=== PATIENT | female | born 1940 | race Caucasian/White ===

== ENCOUNTER 2016-11-10 12:32 | Outpatient (CLI) | payer MEDICARE, OTHER | END 2016-11-10 12:33 | disposition home or self-care (01) | DX: I48.91 Unspecified atrial fibrillation (principal); Z79.01 Long term (current) use of anticoagulants ==

== ENCOUNTER 2016-12-22 13:38 | Outpatient (CLI) | payer MEDICARE, OTHER | END 2016-12-22 13:39 | disposition home or self-care (01) | DX: I48.91 Unspecified atrial fibrillation (principal); Z79.01 Long term (current) use of anticoagulants ==

== ENCOUNTER 2017-02-08 10:07 | Outpatient (CLI) | payer MEDICARE, OTHER | END 2017-02-08 10:08 | disposition home or self-care (01) | DX: Z78.0 Asymptomatic menopausal state (principal) ==

== ENCOUNTER 2017-04-06 07:05 | Outpatient (CLI) | payer MEDICARE, OTHER ==
[2017-04-06 12:15] LABS: BUN - BLOOD UREA NITROGEN 12 mg/dL (6-20); CALCIUM 9.3 mg/dL (8.5-10.3); CARBON DIOXIDE - CO2 27 mmol/L (21-32); CHLORIDE 93 mmol/L (101-111); CHOL/HDL RATIO 2.4 (<4.4); CHOLESTEROL 190 mg/dL; CREATININE 1.2 mg/dL (0.4-1.0); GFR - MDRD 44 (>89); GLUCOSE 117 mg/dL (70-100); HDL CHOLESTEROL 78 mg/dL; LDL/HDL RATIO 1.2 (<4.4); POTASSIUM 3.8 mmol/L (3.5-5.0); SODIUM 130 mmol/L (135-145); TRIGLYCERIDES 94 mg/dL; VLDL CHOLESTEROL 19 mg/dL
== END 2017-04-06 07:06 | disposition home or self-care (01) ==
LOC: LAB.F 07:05
PROVIDERS: ATTEND Internal Medicine
DX: I48.91 Unspecified atrial fibrillation (principal); N18.3 Chronic kidney disease, stage 3 (moderate); C50.919 Malignant neoplasm of unspecified site of unspecified female breast; Z13.6 Encounter for screening for cardiovascular disorders; I12.9 Hypertensive chronic kidney disease with stage 1 through stage 4 chronic kidney disease, or unspecified chronic kidney disease; Z79.01 Long term (current) use of anticoagulants
CPT/HCPCS: 36415; 80048; 80061; 82043; 82570; 85610

== ENCOUNTER 2017-04-14 10:09 | Outpatient (CLI) | payer MEDICARE, OTHER | END 2017-04-14 10:10 | disposition home or self-care (01) | LOC: DI.S 10:09 | PROVIDERS: ATTEND Internal Medicine | DX: Z53.9 Procedure and treatment not carried out, unspecified reason (principal) ==

== ENCOUNTER 2017-06-01 12:36 | Outpatient (CLI) | payer MEDICARE, OTHER | END 2017-06-01 12:37 | disposition home or self-care (01) | LOC: LAB.F 12:36 | PROVIDERS: ATTEND Internal Medicine | DX: I48.91 Unspecified atrial fibrillation (principal); Z79.01 Long term (current) use of anticoagulants | CPT/HCPCS: 85610 ==

== ENCOUNTER 2017-06-18 10:31 | Inpatient (IN) | payer MEDICARE, OTHER ==
--- NOTE | 2017-06-18 10:51 | ED Physician Documentation ---
PD HPI DYSPNEA - Stated complaint Stated Complaint: SOA - Chief complaint Chief Complaint: Resp - History obtained from History obtained from: Patient - History of Present Illness Timing - onset: How many days ago (5-6) Timing - onset during: Exertion, Other (lying down, fairly irregular times that it is bothering her.) Timing - duration: Days Timing - details: Gradual onset, Still present Inciting event(s): No: Out of meds, URI (has not had cough per se. Mild sputum production) Improved by: Rest, Sitting up Worsened by: Exertion, Laying flat, Coughing Associated symptoms: Cough (mild cough at times, not predominate per patient.), Wheezing, Palpitations (chronic atrial fib.). No: Fever, Hemoptysis, Chest pain / discomfort Similar symptoms before: Has not had sx before Recently seen: Not recently seen Review of Systems Constitutional: reports: Myalgias. denies: Fever, Chills Nose: denies: Rhinorrhea / runny nose, Congestion Throat: denies: Sore throat Cardiac: reports: Palpitations (chronic atrial fib.), Pedal edema (chronic). denies: Chest pain / pressure, Calf pain Respiratory: reports: Dyspnea, Cough (minimal for the past week), Wheezing GI: denies: Abdominal Pain, Nausea, Vomiting, Constipation, Diarrhea, Bloody / black stool : denies: Dysuria, Frequency Skin: denies: Rash, Lesions Musculoskeletal: denies: Extremity pain Neurologic: reports: Generalized weakness. denies: Focal weakness, Numbness, Difficulty speaking, Near syncope Endocrine: reports: Easy bruising / bleeding. 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, Other HEENT: Tonsil/Adenoidectomy - Present Medications Home Medications: Ambulatory Orders Medication Instructions Recorded Confirmed Metoprolol Tartrate 100 mg PO BID 06/12/14 06/18/17 Nitrofurantoin [Macrobid] 100 mg ORAL DAILY PRN 06/12/14 06/18/17 [id number] CD [Cardizem Cd] 180 mg PO DAILY 06/12/14 06/18/17 Anastrozole [Arimidex] 1 mg PO DAILY 10/01/16 06/18/17 Lisinopril [Lisinopril] 40 mg PO DAILY 06/18/17 06/18/17 Warfarin Sodium [Jantoven] 2.5 mg PO SUTUWETHSA@1400 06/18/17 06/18/17 Warfarin Sodium [Jantoven] 5 mg PO MOFR@1400 06/18/17 06/18/17 - Allergies Allergies/Adverse Reactions: Allergies Allergy/AdvReac Type Severity Reaction Status Date / Time Sulfa (Sulfonamide Allergy Rash Verified 06/18/17 10:39 Antibiotics) - Social History Does the pt smoke?: No Smoking Status: Never smoker Does the pt drink ETOH?: No Does the pt have substance abuse?: No - Family History Family history: reports: Non contributory - Immunizations Immunizations are current?: No Immunizations: TDAP >10years/unknown - POLST Patient has POLST: No PD ED PE NORMAL - Vitals Vital signs reviewed: Yes - General General: Alert and oriented X 3, Well developed/nourished - HEENT HEENT: Moist mucous membranes, Pharynx benign - Neck Neck: Supple, no meningeal sign, No adenopathy, No bruit, Other (mild JVD reclined to 45 degrees) - Cardiac Cardiac: No murmur. No: RRR (irregular but reasonable rate at 80-115) - Respiratory Respiratory: No respiratory distress, Other (crackles at bases, right more than left, and some central wheezing with breathing. ) - Abdomen Abdomen: Soft, Non tender, Non distended - Female Female : Deferred - Rectal Rectal: Deferred - Back Back: No CVA TTP - Derm Derm: Normal color, Warm and dry - Extremities Extremities: No tenderness to palpate, Normal ROM s pain, No calf tenderness / cord, Other (1+ edema in both lower legs. ) - Neuro Neuro: Alert and oriented X 3, No motor deficit, Normal speech - Psych Psych: Normal mood, Normal affect Results - Vitals Vitals: Vital Signs - 24 hr 06/18/17 06/18/17 06/18/17 10:36 12:24 12:46 Temperature 36.6 C Heart Rate 114 H 62 55 L Respiratory 20 21 20 Rate Blood Pressure 209/90 H 170/109 H O2 Saturation 92 95 Oxygen O2 Source Room air - Labs Labs: Laboratory Tests 06/18/17 06/18/17 06/18/17 11:30 11:30 11:30 WBC 9.4 RBC 3.51 L Hgb 12.1 Hct 35.4 L MCV 100.9 H MCH 34.6 H MCHC 34.3 RDW 13.4 Plt Count 214 MPV 7.6 L Neut # 7.0 H Lymph # 1.4 L [place] # 0.9 Eos # 0.0 Baso # 0.1 Absolute Nucleated RBC 0.00 Nucleated RBCs 0.0 PT 21.9 H INR 1.9 H Sodium 124 L Potassium 4.9 Chloride 89 L Carbon Dioxide 25 Anion Gap 10.0 BUN 19 Creatinine 1.2 H Estimated GFR (MDRD) 44 L Glucose 126 H Calcium 9.5 Magnesium 1.6 L Total Bilirubin 0.9 AST 22 ALT 14 Alkaline Phosphatase 78 Troponin I B-Natriuretic Peptide Total Protein 7.2 Albumin 3.8 Globulin 3.4 Albumin/Globulin Ratio 1.1 Lipase 45 06/18/17 06/18/17 11:30 11:30 WBC RBC Hgb Hct MCV MCH MCHC RDW Plt Count MPV Neut # Lymph # [place] # Eos # Baso # Absolute Nucleated RBC Nucleated RBCs PT INR Sodium Potassium Chloride Carbon Dioxide Anion Gap BUN Creatinine Estimated GFR (MDRD) Glucose Calcium Magnesium Total Bilirubin AST ALT Alkaline Phosphatase Troponin I < 0.04 B-Natriuretic Peptide 1294 H Total Protein Albumin Globulin Albumin/Globulin Ratio Lipase - Rads (name of study) chest Radiology: Prelim report reviewed, EMP read contemporaneously (infiltrate on right and some effusion on left, could be c/w pneumonia, CHF. ) PD MEDICAL DECISION MAKING - ED course Complexity details: reviewed results, re-evaluated patient (She has had increased coughing and now some sputum production (clear though) after neb treatment. says she has had cough this past week. Consider pneumonia vs. CHF, with interstitial infiltrate, effusion, pedal edema and elevated BNP. She is having lower sats to 92% RA and desats to 85% with simple coughing here. ), considered differential (likely new onset CHF, without notable symptoms to suggest pneumonia. ), d/w patient, d/w systems security consultant (Dr. Hubbard, Hospitalist) Departure - Departure Disposition: 66 [facility] DC/Xfer Clinical Impression: Hyponatremia Congestive heart failure Qualifiers: Congestive heart failure type: unspecified congestive heart failure type Congestive heart failure chronicity: acute Qualified Code(s): I50.9 - Heart failure, unspecified Dyspnea Qualifiers: Dyspnea type: orthopnea Qualified Code(s): R06.01 - Orthopnea Hypertension Qualifiers: Hypertension type: other secondary hypertension Qualified Code(s): I15.8 - Other secondary hypertension Atrial fibrillation Qualifiers: Atrial fibrillation type: chronic Qualified Code(s): I48.2 - Chronic atrial fibrillation Condition: Stable Record reviewed to determine appropriate education?: Yes
[2017-06-18 11:38] LABS: BASOPHILS # (AUTO) 0.1 10^3/uL (0.0-0.1); BASOPHILS % (AUTO) 0.9 %; EOSINOPHILS % (AUTO) 0.2 %; HCT - HEMATOCRIT 35.4 % (37.0-47.0); HGB - HEMOGLOBIN 12.1 g/dL (12.0-16.0); LYMPHOCYTES # (AUTO) 1.4 10^3/uL (1.5-3.5); LYMPHOCYTES % (AUTO) 14.9 %; MEAN CORPUSCULAR HEMOGLOBIN 34.6 pg (27.0-31.0); MEAN CORPUSCULAR HGB CONC 34.3 g/dL (32.0-36.0); MEAN CORPUSCULAR VOLUME 100.9 fL (81.0-99.0); MEAN PLATELET VOLUME 7.6 fL (7.9-10.8); MONOCYTES # (AUTO) 0.9 10^3/uL (0.0-1.0); MONOCYTES % (AUTO) 9.5 %; NEUTROPHILS % (AUTO) 74.5 %; RED BLOOD COUNT 3.51 10^6/uL (4.20-5.40); RED CELL DISTRIBUTION WIDTH 13.4 % (12.0-15.0); UNCORRECTED WHITE BLOOD COUNT 9.4 x10^3/uL; WHITE BLOOD COUNT 9.4 x10^3/uL (4.8-10.8)
[2017-06-18 11:45] LABS: INR 1.9 (0.8-1.2); PT - PROTHROMBIN TIME 21.9 secs (9.9-12.6)
[2017-06-18 11:50] LABS: BILIRUBIN,TOTAL 0.9 mg/dL (0.2-1.0); CALCIUM 9.5 mg/dL (8.5-10.3); CREATININE 1.2 mg/dL (0.4-1.0); MAGNESIUM 1.6 mg/dL (1.7-2.8); POTASSIUM 4.9 mmol/L (3.5-5.0); TOTAL PROTEIN 7.2 g/dL (6.7-8.2)
[2017-06-18 11:51] LABS: ALBUMIN/GLOBULIN RATIO 1.1 (1.0-2.2)
--- NOTE | 2017-06-18 11:59 | XRAY Preliminary Report ---
Exam: XR Chest 2 View PA/LAT IMPRESSION: 1. Infiltrates in the right middle lobe and the left base with additional small left effusion. [facility] SITE ID: [id number]
--- NOTE | 2017-06-18 12:02 | XRAY Report ---
EXAM: CHEST RADIOGRAPHY EXAM DATE: 06/18/2017 11:52 AM. CLINICAL HISTORY: Dyspnea for several days. COMPARISON: None. TECHNIQUE: 2 views. FINDINGS: Lungs/Pleura: Opacities are noted in the right middle lobe in addition to the left base suggestive of infiltrates. There is a small left pleural effusion. Mediastinum: Heart and mediastinal contours are unremarkable. Other: None. IMPRESSION: 1. Infiltrates in the right middle lobe and the left base with additional small left effusion. [facility] Referring Provider Line: [phone] SITE ID: [id number]
[2017-06-18] MEDS ORDERED: ALBUTEROL NEB 2.5 MG/3 ML INH STA (12:10)
[2017-06-18] MEDS ORDERED: ALBUTEROL NEB 2.5 MG/3 ML INH ONE (12:23)
[2017-06-18] MEDS ORDERED: FUROSEMIDE 20 MG/2 ML VIAL IVP STA (13:15)
[2017-06-18] MEDS ORDERED: ONDANSETRON 4 MG/2 ML VIAL IVP PRN (13:19)
[2017-06-18] MEDS ORDERED: HYDROcod/ACETAM 10 MG/325 MG TABLET PO PRN (13:19)
[2017-06-18] MEDS ORDERED: ACETAMINOPHEN 325 MG TABLET PO PRN (13:19)
[2017-06-18] MEDS ORDERED: PROCHLORPERAZINE 10 MG/2 ML VIAL IVP PRN (13:19)
[2017-06-18] MEDS ORDERED: HYDROcod/ACETAM 5/325 MG TABLET PO PRN (13:19)
[2017-06-18] MEDS ORDERED: FUROSEMIDE 20 MG/2 ML VIAL IVP ONE ×2 (13:38→14:45)
[2017-06-18] MEDS: LISINOPRIL 20 MG TABLET PO SCH (15:24)
--- NOTE | 2017-06-18 15:43 | HISTORY & PHYSICAL EXAMINATION ---
Chief Complaint - Chief Complaint Chief Complaint: shortness of air History of Present Illness - Admitted From Admitted From:: emergency department - History Obtained From Records Reviewed: yes History obtained from: patient and Exam Limitations: none - History of Present Illness HPI Comment/Other: Patient is a 77-year-old female with a past medical history significant for stage I breast cancer with HER2 overexpression status post lumpectomy and radiation currently getting chemotherapy with anastrozole since 09/2016, also with history of atrial fibrillation on Coumadin, hypertension and an ovarian tumor which has been removed who presents to the emergency department with a chief complaint of shortness of air. The patient states that her symptoms initially started on Tuesday she states that she noticed that it was harder for her to breathe when she exerted herself. She also noticed that she was tiring more easily. She states that she was having increased cough when lying flat and had difficulty breathing when she would lie flat. The patient states that she continued to have cough throughout the week with clear sputum production. She states that initially she felt as though her symptoms got better however this morning she states that her symptoms became acutely worse. She states that when she was getting up to walk she felt very short of air just with minimal exertion and finally decided she needed to come into the emergency department. The patient denies any fevers or chills. She denies any chest pain. She does admit to lower extremity swelling she states that she has had lower extremity swelling for a long time and has been working with her primary care physician to improve the swelling. The patient otherwise denies any changes in her appetite, recent unintentional weight loss, night sweats. She also denies any headaches, blurred vision, runny nose, sore throat, nasal congestion, abdominal pain, nausea, vomiting, diarrhea or constipation. She denies any joint pains muscle aches or focal neurologic deficits. On presentation to the emergency department the patient was afebrile she was quite hypertensive with blood pressure in the 200 systolic, she also appeared slightly tachypneic but was saturating at around 92% on room air. The patient underwent routine lab work which did reveal significant hyponatremia of 124 with an elevated BNP of 1294. The patient's troponin was negative and her magnesium was slightly decreased. The patient's EKG showed that she was in atrial fibrillation with anterior Q waves and T wave inversions. The patient's chest x-ray showed infiltrates in the right middle lobe and left base with additional small left pleural effusion. The patient was initially going to be placed in observation for what appeared to be a CHF exacerbation with possible pneumonia. However while in the emergency department the patient developed increasing hypoxia at rest with O2 saturation dropping to 85%. Also when the patient had to get up to use the commode she became very tachypneic with respiratory rate in the 30s and had respiratory distress. Therefore patient was admitted to the [facility] for CHF exacerbation and possible community acquired pneumonia. She is also going to be tested for pulmonary embolism but a CT angiogram. Review of Systems - Other Findings Other Findings: A comprehensive review of systems was performed the pertinent positives and negatives are stated above in the HPI and the remainder of the review of systems is negative. History - Past Medical History Cardiovascular: reports: Hypertension, Atrial fibrillation Respiratory: reports: Shortness of breath Neuro: reports: None Endocrine/Autoimmune: reports: None GI: reports: None : reports: Chronic bladder infection HEENT: reports: None Psych: reports: Anxiety Musculoskeletal: reports: None Derm: reports: None MRSA Hx?: No Other Past Medical History: 1. Stage I Breast cancer with HER2 hyperexpansion status post lumpectomy, radiation and currently on hormone therapy. 2. Atrial fibrillation on Coumadin. 3. Hypertension. 4. Ovarian tumor status post resection. 5. Appendectomy. 6. 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 Social History Notes: Patient was born and raised in the [facility]. 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 The family move to [place] and she spent 35 years in [place]. They then moved to [place] where they only live for 2 years before moving back to the [facility]. Her and her have now been living in [facility] for the last 10 years. The patient does not have any biological children. The patient was formerly a smoker she smoked less than a quarter pack a day for about 20 years she quit over 20 years ago. Her and her have been for 43 years. She does drink alcohol socially and denies any illicit drug use. - Substance History Use: Uses substance without health or social issues: NONE Abuse: Recurrent use of substance despite neg consequences: NONE Dependence: Experiences withdrawal or developed tolerances: NONE - POLST Patient has POLST: No POLST Status: Full Code Meds/Allgy - Home Medications Home Medications: Ambulatory Orders Medication Instructions Recorded Confirmed Metoprolol Tartrate 100 mg PO BID 06/12/14 06/18/17 Nitrofurantoin [Macrobid] 100 mg ORAL DAILY PRN 06/12/14 06/18/17 [id number] CD [Cardizem Cd] 180 mg PO DAILY 06/12/14 06/18/17 Anastrozole [Arimidex] 1 mg PO DAILY 10/01/16 06/18/17 Lisinopril [Lisinopril] 40 mg PO DAILY 06/18/17 06/18/17 Warfarin Sodium [Jantoven] 2.5 mg PO SUTUWETHSA@1400 06/18/17 06/18/17 Warfarin Sodium [Jantoven] 5 mg PO MOFR@1400 06/18/17 06/18/17 - Allergies Allergies/Adverse Reactions: Allergies Allergy/AdvReac Type Severity Reaction Status Date / Time Sulfa (Sulfonamide Allergy Rash Verified 06/18/17 10:39 Antibiotics) Exam - Vital Signs Reviewed Vital Signs: Yes Vital Signs: Vital Signs x48h Temp Pulse Pulse Resp BP BP Pulse Ox 06/18/17 14:59 36.5 C 62 181/78 H 96 06/18/17 14:45 36.9 C 65 18 215/86 H 92 06/18/17 14:03 61 24 211/76 H 91 L 06/18/17 13:21 61 20 160/118 H 95 - Physical Exam General Appearance: positive: Alert, Moderate distress (tachypnea, using accessory muscles of breathing) Eyes Bilateral: positive: Normal inspection, PERRL, EOMI, No lid inflammation, Conjunctivae nml, No scleral icterus ENT: positive: ENT inspection nml, Pharynx nml, No signs of dehydration. negative: Purulent nasal drainage, Pharyngeal erythema, Oral lesions Neck: positive: Nml inspection, Thyroid nml, Trachea midline, Other (elevated JVD). negative: Thyromegaly, Lymphadenopathy (R), Lymphadenopathy (L), Carotid bruit, Tracheal deviation Respiratory: positive: Chest non-tender, Wheezes (upper airway), Rales ( bibasilar), Rhonchi (right lung), Other (tachypneic with respiratory distress) Cardiovascular: positive: No murmur, No gallop, Irregularly irregular Abdomen: positive: Non-tender, No organomegaly, Nml bowel sounds, No distention. negative: Guarding, Rebound, Hepatomegaly Back: positive: Nml inspection. negative: CVA tenderness (R), CVA tenderness (L ) Skin: positive: Color nml, No rash, Warm. negative: Cyanosis, Pallor Extremities: positive: Non-tender, Full ROM, Nml appearance, Pedal edema (1+). negative: Joint swelling Neurologic/Psychiatric: positive: Oriented x3, CN's nml (2-12), Motor nml, Sensation nml, Mood/affect nml Conclusion/Plan - Problem List (1) Acute respiratory failure with hypoxia Conclusion/Plan: Patient presented with shortness of air and cough. Patient also admitted to having orthopnea and lower extremity swelling. Patient's BNP was elevated at about 1200. Patient was found to have crackles on examination along with upper airways wheezing. Initially on presentation the patient appeared to be stable but decompensated in the emergency department with respiratory distress and hypoxic respiratory failure. Patient's oxygen saturation dropped to 85% on room air she was placed on 3 L of oxygen with which oxygen saturation improved the patient was still quite tachypneic with exertion and using accessory muscles of breathing. Etiology of the patient's acute respiratory failure. Most likely to be secondary to congestive heart failure although the patient is not a history of systolic dysfunction she does have history of atrial fibrillation and was tachycardic on presentation although her heart rate remained stable after initial presentation. Patient is not have an echocardiogram in our system given her elevated BNP, orthopnea and crackles on examination with positive JVD I would suspect the patient likely has developed some systolic or diastolic dysfunction. Patient's chest x-ray didn't show infiltrates on the right side and small pleural effusion on the left infiltrates could also have been secondary to pulmonary vascular congestion and pulmonary edema however given her cough this is also a possible etiology of the patient's hypoxemia. Patient was hypertensive on presentation and blood pressure remained elevated during the time she was in the emergency department. Her blood pressure was as high as 200 systolic and 118 diastolic. The patient may have had flash pulmonary edema given that her symptoms and hypoxia did develop quite acutely. The patient has had breast cancer and did present with very acute symptoms there for pulmonary embolism is also on the differential. The patient will undergo a CT pulmonary angiogram. The patient's hypoxia could also be multifactorial. Patient is not have a history of COPD or asthma. Plan: Supplemental oxygen IV Lasix IV antibiotics with ceftriaxone azithromycin CT pulmonary angiogram Echocardiogram telemetry monitoring Rate control of atrial fibrillation (2) Acute exacerbation of CHF (congestive heart failure) Conclusion/Plan: Patient appears to have new-onset congestive heart failure Patient had elevated BNP of greater than 1200 with orthopnea and increased lower extremity swelling. She also had elevated JVD and crackles on examination with chest x-ray concerning for possible pulmonary edema. This could be secondary to uncontrolled atrial fibrillation with RVR however patient rate was controlled after initial elevation on presentation Patient likely has systolic or diastolic dysfunction but we do not have an echo Patient may have a pulmonary embolism that could cause right-sided heart failure. Patient does have Q waves in the anterior leads with T-wave inversions in may have some ischemic cardiomyopathy causing a reduced EF but we will not know this until we get an echocardiogram. Plan: Supplemental oxygen IV Lasix Echocardiogram Telemetry monitoring If patient does have a reduced EF she is already on optimal treatment with beta ashia and BRODIE inhibitor Qualifiers: Congestive heart failure type: unspecified congestive heart failure type Qualified Code(s): I50.9 - Heart failure, unspecified (3) CAP (community acquired pneumonia) Conclusion/Plan: Patient has been having cough and shortness of air for the last several days. Patient was hypoxic in the emergency department with respiratory distress, tachypnea and use of the sensory muscles of breathing Chest x-ray showed significant infiltrates in the right lung the patient did have rhonchi on examination. Plan: Treat for [facility] pneumonia with IV ceftriaxone azithromycin Supplemental oxygen Nebulizers as needed (4) Hypertension Conclusion/Plan: Patient's blood pressure was severely elevated on presentation with systolic blood pressure of 209 and continued to be elevated during her stay in the emergency department. The patient's acute decompensation and hypoxia it is possible that she developed flash pulmonary edema secondary to hypertensive emergency however patient did have multiple other reasons she may have developed hypoxia. Plan: Continue patient's home medications Monitor blood pressure closely Give IV antihypertensives if needed Give IV Lasix Qualifiers: Hypertension type: essential hypertension Qualified Code(s): I10 - Essential (primary) hypertension (5) Atrial fibrillation Conclusion/Plan: Patient history of atrial fibrillation on Coumadin. Chronic A. fib The patient's heart rate was elevated on presentation at 114. Patient's heart rate remained stable while she was down in the emergency department. Patient may have been having intermittent A. fib with RVR at home that could have led to pulmonary vascular congestion from forward failure. EKG shows atrial fibrillation Plan: Continue Coumadin Monitor INR Continue home dose of metoprolol Telemetry monitoring Titrate beta ashia as needed to maintain normal heart rate Qualifiers: Atrial fibrillation type: chronic Qualified Code(s): I48.2 - Chronic atrial fibrillation (6) Hyponatremia Conclusion/Plan: Patient has significant hyponatremia with sodium of 124. Patient appears to be euvolemic to hypervolemic on presentation Patient's hyponatremia is likely either secondary to SIADH from possible paraneoplastic syndrome and likely to be from stage I breast cancer makes me concerned for possibility of lung malignancy. Could also be secondary to pneumonia as that can cause hyponatremia and mild SIADH. Could also be secondary to hypervolemia from CHF exacerbation although the patient is not appeared to be overly edematous. Plan: IV Lasix Monitor sodium Consider fluid restriction and sodium is not improving Treat pneumonia CT pulmonary angiogram to look for possible malignancy (7) Hypomagnesemia Conclusion/Plan: Patient presented with hypomagnesemia with a magnesium of 1.6. Replace magnesium with IV magnesium sulfate Monitor magnesium - Lab Results Lab results reviewed: Yes Fish Bones: 06/18/17 11:30 06/18/17 11:30 Other Lab Results: Laboratory Results WBC 9.4 x10^3/uL (4.8-10.8) 06/18/17 11:30 RBC 3.51 10^6/uL (4.20-5.40) L 06/18/17 11:30 Hgb 12.1 g/dL (12.0-16.0) 06/18/17 11:30 Hct 35.4 % (37.0-47.0) L 06/18/17 11:30 MCV 100.9 fL (81.0-99.0) H 06/18/17 11:30 MCH 34.6 pg (27.0-31.0) H 06/18/17 11:30 MCHC 34.3 g/dL (32.0-36.0) 06/18/17 11:30 RDW 13.4 % (12.0-15.0) 06/18/17 11:30 Plt Count 214 10^3/uL (130-450) 06/18/17 11:30 MPV 7.6 fL (7.9-10.8) L 06/18/17 11:30 Neut # 7.0 10^3/uL (1.5-6.6) H 06/18/17 11:30 Lymph # 1.4 10^3/uL (1.5-3.5) L 06/18/17 11:30 [place] # 0.9 10^3/uL (0.0-1.0) 06/18/17 11:30 Eos # 0.0 10^3/uL (0.0-0.7) 06/18/17 11:30 Baso # 0.1 10^3/uL (0.0-0.1) 06/18/17 11:30 Absolute Nucleated RBC 0.00 x10^3/uL 06/18/17 11:30 Nucleated RBCs 0.0 /100WBC 06/18/17 11:30 PT 21.9 secs (9.9-12.6) H 06/18/17 11:30 INR 1.9 (0.8-1.2) H 06/18/17 11:30 Sodium 124 mmol/L (135-145) L 06/18/17 11:30 Potassium 4.9 mmol/L (3.5-5.0) 06/18/17 11:30 Chloride 89 mmol/L (101-111) L 06/18/17 11:30 Carbon Dioxide 25 mmol/L (21-32) 06/18/17 11:30 Anion Gap 10.0 (6-13) 06/18/17 11:30 BUN 19 mg/dL (6-20) 06/18/17 11:30 Creatinine 1.2 mg/dL (0.4-1.0) H 06/18/17 11:30 Estimated GFR (MDRD) 44 (>89) L 06/18/17 11:30 Glucose 126 mg/dL (70-100) H 06/18/17 11:30 Calcium 9.5 mg/dL (8.5-10.3) 06/18/17 11:30 Magnesium 1.6 mg/dL (1.7-2.8) L 06/18/17 11:30 Total Bilirubin 0.9 mg/dL (0.2-1.0) 06/18/17 11:30 AST 22 IU/L (10-42) 06/18/17 11:30 ALT 14 IU/L (10-60) 06/18/17 11:30 Alkaline Phosphatase 78 IU/L (42-121) 06/18/17 11:30 Troponin I < 0.04 ng/mL (<0.49) 06/18/17 11:30 B-Natriuretic Peptide 1294 pg/mL (5-100) H 06/18/17 11:30 Total Protein 7.2 g/dL (6.7-8.2) 06/18/17 11:30 Albumin 3.8 g/dL (3.2-5.5) 06/18/17 11:30 Globulin 3.4 g/dL (2.1-4.2) 06/18/17 11:30 Albumin/Globulin Ratio 1.1 (1.0-2.2) 06/18/17 11:30 Lipase 45 U/L (22-51) 06/18/17 11:30 - Diagnostic Imaging Results Diagnostic Imaging Results: positive: Final report reviewed Diagnostic Imaging Results Comments: Chest x-ray impression: 1. Infiltrates in the right middle lobe and left base with additional small left effusion - EKG Results EKG Interpreted Independently: Yes EKG Findings: Atrial fibrillation with anterior Q waves and T wave inversions Issues/Core Measures - Anticipated LOS Anticipated Stay Length: 2 or more midnights - DVT/VTE - Prophylaxis VTE/DVT Prophylaxis med ordered at admit?: Yes
[2017-06-18] MEDS ORDERED: WARFARIN 5 MG TABLET PO SCH (16:00)
[2017-06-18] MEDS ORDERED: IOPAMIDOL-300 100 ML VIAL IVP ONE (16:03)
[2017-06-18] MEDS: cefTRIAXone 2 GM in SODIUM CHLORIDE 0.9% MINIBAG 100 ML IV SCH (16:14)
--- NOTE | 2017-06-18 16:27 | CT Report ---
EXAM: CT ANGIOGRAM CHEST EXAM DATE: 06/18/2017 04:04 PM. CLINICAL HISTORY: Hypoxia, shortness of breath and history of breast cancer. COMPARISON: None. TECHNIQUE: Routine helical imaging was performed through the chest in the pulmonary arterial phase. I V Contrast: 100 cc Isovue-300. Reconstructions: Coronal 3-D MIP reconstructions.Sagittal and coronal. In accordance with CT protocol optimization, one or more of the following dose reduction techniques w ere utilized for this exam: automated exposure control, adjustment of mA and/or KV based on patient s ize, or use of iterative reconstructive technique. FINDINGS: Pulmonary Arteries: Diagnostic quality: Adequate through the segmental arteries. No evidence for acute or chronic pulmona ry emboli. Lungs/Pleura: Small bilateral pleural effusions with dependent atelectasis in the bilateral lower lob es. Vascular distention with interlobular septal thickening bilaterally. Some subpleural as well as l inear, well marginated airspace disease within the anterior aspect of the right upper lobe. Separate areas of groundglass attenuation within the right lung. Mediastinum: Hypodense left lobe thyroid nodule measuring 7 mm. No enlarged mediastinal lymph nodes. Cardiomegaly with four-chamber dilatation, especially notable at the left ventricle and left atrium. Thoracic Aorta: Moderate atherosclerotic calcifications and coronary atherosclerosis. Normal caliber of the thoracic aorta. Upper Abdomen: 12 mm cyst within the right lobe of the liver. Other: Likely small clips within the right breast, partially imaged. IMPRESSION: 1. No evidence of pulmonary embolus. 2. Interlobular septal thickening with small bilateral pleural effusions consistent with pulmonary ed shayla. 3. Cardiomegaly with notable dilatation of the left atrium and left ventricle consistent with left ve ntricular failure and pulmonary edema. 4. Well demarcated linear/bandlike opacity in the subpleural region of the right upper lobe. Appearan ce suggests radiation fibrosis. Clinical correlation for history of radiation to the right breast. 5. Nonspecific groundglass opacities within the right lung. Suspect this represents some edema or sub segmental atelectasis although the differential diagnosis would include infection. [facility] Referring Provider Line: [phone] SITE ID: [id number]
[2017-06-18] MEDS: IPRATROPIUM/ALBUTEROL 3 ML NEB INH PRN (16:35)
[2017-06-18] MEDS ORDERED: MAGNESIUM SULFATE 2 GRAM 50 ML IV ONE (17:00)
[2017-06-18] MEDS ORDERED: FUROSEMIDE 40 MG/4 ML VIAL IVP ONE (17:00)
[2017-06-18] MEDS ORDERED: MORPHINE 2 MG/ML CARPUJECT IVP ONE (17:00)
[2017-06-18] MEDS: AZITHROMYCIN INJ 500 MG in SODIUM CHLORIDE 0.9% 250 ML IV SCH (17:16)
[2017-06-18] MEDS: WARFARIN 2.5 MG TABLET PO SCH (18:19)
[2017-06-18] MEDS ORDERED: METOPROLOL TARTRATE 50 MG TABLET PO SCH (21:00)
[2017-06-18] MEDS: SODIUM CHLORIDE FLUSH 0.9% 10 ML SYRINGE IVP SCH (23:04)
[2017-06-19] MEDS: ZOLPIDEM 5 MG TABLET PO PRN ×2 (01:12→21:33)
[2017-06-19] MEDS: IPRATROPIUM/ALBUTEROL 3 ML NEB INH PRN (01:20)
[2017-06-19] MEDS: SODIUM CHLORIDE FLUSH 0.9% 10 ML SYRINGE IVP SCH ×3 (06:39→21:41)
[2017-06-19] MEDS: SODIUM CHLORIDE FLUSH 0.9% 10 ML SYRINGE IVP PRN ×2 (06:39→08:34)
[2017-06-19] MEDS: FUROSEMIDE 40 MG/4 ML VIAL IVP SCH ×2 (06:39→14:00)
[2017-06-19] MEDS: PANTOPRAZOLE 40 MG TABLET PO SCH (06:40)
[2017-06-19 06:41] LABS: BASOPHILS # (AUTO) 0.1 10^3/uL (0.0-0.1); BASOPHILS % (AUTO) 0.5 %; HCT - HEMATOCRIT 36.5 % (37.0-47.0); HGB - HEMOGLOBIN 12.4 g/dL (12.0-16.0); LYMPHOCYTES % (AUTO) 9.3 %; MEAN CORPUSCULAR HEMOGLOBIN 34.5 pg (27.0-31.0); MEAN CORPUSCULAR HGB CONC 33.9 g/dL (32.0-36.0); MEAN CORPUSCULAR VOLUME 101.8 fL (81.0-99.0); MEAN PLATELET VOLUME 8.2 fL (7.9-10.8); MONOCYTES # (AUTO) 0.9 10^3/uL (0.0-1.0); MONOCYTES % (AUTO) 7.9 %; NEUTROPHILS # (AUTO) 9.3 10^3/uL (1.5-6.6); NEUTROPHILS % (AUTO) 82.3 %; NUCLEATED RED BLOOD CELLS AUTO 0.1 /100WBC; RED BLOOD COUNT 3.59 10^6/uL (4.20-5.40); RED CELL DISTRIBUTION WIDTH 13.7 % (12.0-15.0); UNCORRECTED WHITE BLOOD COUNT 11.3 x10^3/uL; WHITE BLOOD COUNT 11.3 x10^3/uL (4.8-10.8)
[2017-06-19 06:50] LABS: INR 1.9 (0.8-1.2); PT - PROTHROMBIN TIME 21.5 secs (9.9-12.6)
[2017-06-19 06:59] LABS: ALBUMIN/GLOBULIN RATIO 1.1 (1.0-2.2); CALCIUM 9.1 mg/dL (8.5-10.3); CREATININE 1.3 mg/dL (0.4-1.0); MAGNESIUM 1.9 mg/dL (1.7-2.8); PHOSPHORUS 4.3 mg/dL (2.5-4.6); POTASSIUM 3.9 mmol/L (3.5-5.0); TOTAL PROTEIN 6.2 g/dL (6.7-8.2)
[2017-06-19 07:32] LABS: HEMOGLOBIN A1C 0.49 g/dL
[2017-06-19] MEDS: cefTRIAXone 2 GM in SODIUM CHLORIDE 0.9% MINIBAG 100 ML IV SCH (08:31)
[2017-06-19] MEDS: diltiaZEM CD 180 MG CAPSULE PO SCH (08:31)
[2017-06-19] MEDS ORDERED: ENOXAPARIN 40 MG/0.4 ML SYRINGE SUBQ SCH (09:00)
[2017-06-19] MEDS ORDERED: FUROSEMIDE 20 MG/2 ML VIAL IVP ONE (09:00)
[2017-06-19] MEDS: POLYETHYLENE GLYCOL 3350 17 GM PACKET PO SCH (09:24)
[2017-06-19] MEDS: METOPROLOL TARTRATE 50 MG TABLET PO SCH ×3 (09:24→20:45)
[2017-06-19] MEDS: AZITHROMYCIN INJ 500 MG in SODIUM CHLORIDE 0.9% 250 ML IV SCH (09:41)
[2017-06-19] MEDS: LISINOPRIL 20 MG TABLET PO SCH (09:41)
[2017-06-19] MEDS: ANASTROZOLE 1 MG TABLET PO SCH (09:41)
[2017-06-19] MEDS ORDERED: ALPRAZolam 0.25 MG TABLET PO ONE (12:30)
--- NOTE | 2017-06-19 12:48 | PROVIDER PROGRESS NOTE ---
Assessment/Plan - Problem List (1) Acute respiratory failure with hypoxia Assessment/Plan: Patient presented with shortness of air and cough. Patient also admitted to having orthopnea and lower extremity swelling. Patient's BNP was elevated at about 1200. Patient was found to have crackles on examination Chest CT showed pulmonary edema with possible heart failure and concern for infection With exertion patient became hypoxic down to the 80s requiring NRB mask yesterday to get sats up to 90s She was given IV lasix with which her sats did improve and she was able to be weaned off O2 Patients BP was also uncontrolled on presentation Plan: Supplemental oxygen IV Lasix 40 mg BID IV antibiotics with ceftriaxone and azithromycin Echocardiogram shows moderate to severe mitral regurgitation and tricuspid regurgitation with preserved EF Telemetry monitoring Rate control of atrial fibrillation BP control (2) Acute exacerbation of CHF (congestive heart failure) Conclusion/Plan: Patient presented with dyspnea for 1 weeks with exertion and at rest and went into respiratory failure with hypoxia on presentation requiring a NRB but has been improving with IV lasix Echo shows moderate to severe mitral and trcuspid regurgitation with preserved EF She continues to have pulmonary edema as evident on CT and on exam with LE swelling BNP this morning is 3938 with is up from 1294 Patients CHF is likely multifactorial secondary to valvular heart disease, A fib and uncontrolled hypertension Plan: Supplemental oxygen IV Lasix 40 mg IV BID with PO potassium supplement 1800 ml fluid restriction Telemetry monitoring Daily weights and strict I/Os Wean down O2 Qualifiers: Congestive heart failure type: unspecified congestive heart failure type Qualified Code(s): I50.9 - Heart failure, unspecified (3) CAP (community acquired pneumonia) Conclusion/Plan: Patient has been having cough and shortness of air for the last several days. Patient was hypoxic in the emergency department with respiratory distress, tachypnea and use of the sensory muscles of breathing Chest x-ray showed significant infiltrates in the right lung the patient did have rhonchi on examination. Plan: Treat for Community acquired pneumonia with IV ceftriaxone azithromycin day 2 Supplemental oxygen Nebulizers as needed (4) Hypertension Conclusion/Plan: Patient's blood pressure was severely elevated on presentation with systolic blood pressure of 209 and continued to be elevated during her stay in the emergency department. The patient's acute decompensation and hypoxia it is possible that she developed flash pulmonary edema secondary to hypertension Plan: Continue patient's home medications Monitor blood pressure closely Give IV antihypertensives if needed Give IV Lasix BP elevated but better controlled today will continue to titrate meds Monitor Qualifiers: Hypertension type: essential hypertension Qualified Code(s): I10 - Essential (primary) hypertension (5) Atrial fibrillation Conclusion/Plan: Patient history of atrial fibrillation on Coumadin. Chronic A. fib The patient's heart rate was elevated on presentation at 114. EKG shows atrial fibrillation Plan: Continue Coumadin INR is 1.9 monitor daily Continue home dose of metoprolol Telemetry monitoring Titrate beta ashia as needed to maintain normal heart rate HR is stable Qualifiers: Atrial fibrillation type: chronic Qualified Code(s): I48.2 - Chronic atrial fibrillation (6) Hyponatremia Conclusion/Plan: Likely hypervolemic hyponatremia secondary to CHF exacerbation Na improved with diuresis increased to 128 from 124 today Plan: IV Lasix Monitor sodium Fluid restriction Treat pneumonia (7) Anxiety Conclusion/Plan: Patient has history of anxiety and feels very anxious with all that is going on and is requesting something for her anxiety Will give her low dose of xanax and monitor (8) Hypomagnesemia Conclusion/Plan: Resolved - Current Meds Current Meds: Current Medications Generic Name Dose Route Start Last Admin Trade Name Freq PRN Reason Stop Dose Admin Albuterol/Ipratropium 3 ml 06/18/17 16:15 06/19/17 01:20 Duoneb INH 3 ml Q4HR PRN Administration Wheezing Anastrozole 1 mg 06/19/17 09:00 06/19/17 09:41 Anastrozole PO 1 mg DAILY LAKISHA Administration Diltiazem HCl 180 mg 06/19/17 09:00 06/19/17 08:31 Cardizem Cd PO 180 mg DAILY LAKISHA Administration Furosemide 40 mg 06/19/17 06:00 06/19/17 06:39 Lasix Inj 40 Mg Vial IVP 40 mg BIDDIURETIC LAKISHA Administration Azithromycin 500 mg/ Sodium 250 mls @ 250 mls/hr 06/18/17 17:00 06/19/17 09:41 Chloride IV 250 mls/hr DAILY@1000 LAKISHA Administration Ceftriaxone Sodium 2 gm/ 100 mls @ 200 mls/hr 06/18/17 16:00 06/19/17 08:31 Sodium Chloride IV 200 mls/hr DAILY LAKISHA Administration Lisinopril 40 mg 06/18/17 16:00 06/19/17 09:41 Zestril PO 40 mg DAILY LAKISHA Administration Metoprolol Tartrate 50 mg 06/18/17 21:44 06/19/17 09:24 Lopressor PO Not Given BID LAKISHA Pantoprazole Sodium 40 mg 06/19/17 07:00 06/19/17 06:40 Protonix PO Not Given QDAC LAKISHA Polyethylene Glycol 17 gm 06/19/17 09:00 06/19/17 09:24 Miralax PO Not Given DAILY LAKISHA Sodium Chloride 10 ml 06/18/17 13:19 06/19/17 08:34 Normal Saline Flush 0.9% IVP 10 ml PRN PRN Administration NEEDED PER PROVIDER ORDERS Sodium Chloride 10 ml 06/18/17 22:00 06/19/17 06:39 Normal Saline Flush 0.9% IVP 10 ml Q8HR LAKISHA Administration Warfarin Sodium 2.5 mg 06/18/17 18:00 06/18/17 18:19 Coumadin PO 2.5 mg [id number] LAKISHA Administration Zolpidem Tartrate 5 mg 06/18/17 13:19 06/19/17 01:12 Ambien PO 5 mg QPM PRN Administration Insomnia - Lab Result Lab results reviewed: Yes Fish Bone Diagrams: 06/19/17 05:40 06/19/17 05:40 - EKG Results EKG Interpreted Independently: Yes - Diagnostic Imaging Results Diagnostic Imaging Results: Prelim report reviewed, Final report reviewed - Additional Planning Condition/Complexity: Guarded My Orders: My Active Orders 06/18/17 16:00 cefTRIAXone [Rocephin] 2 gm Sodium Chloride 0.9% Minibag [Normal Saline 0.9% Minibag] 100 ml IV DAILY 06/18/17 16:15 Nebulizer/MDI Tx. [RC] .q4prn Ipratropium/Albuterol [Duoneb] 3 ml INH Q4HR PRN 06/18/17 17:00 Azithromycin Inj [Zithromax Inj] 500 mg Sodium Chloride 0.9% [Normal Saline 0.9%] 250 ml IV DAILY@1000 06/18/17 17:27 Fluid Restriction [RC] ONCE 06/18/17 17:28 Daily Weight [RC] 0600 Message to Nursing [RC] QSHIFT 06/19/17 06:00 FUROSEMIDE INJ 40mg VIAL [LASIX INJ 40 mg VIAL] 40 mg IVP BIDDIURETIC 08/13/17 12:25 Telemetry- [RC] Q4HR Plan Discussed with:: Patient, Family Time Spent: 31-60 minutes Subjective - Subjective Patient Reports: Shortness of Breath (Patient states that shortness of breath is better this morning but she did have another episode last night where she started to have wheezing and needed more O2.), Other (No fevers, chills or chest pain.) Nursing Reports: No Complaints Objective Vital Signs: Vital Signs - 24 hr 06/18/17 06/18/17 06/18/17 14:45 14:59 16:36 Temperature 36.9 C 36.5 C Heart Rate 68 Heart Rate [ 65 62 Brachial] Respiratory 18 22 Rate Blood Pressure 215/86 H 181/78 H [Right Brachial artery] O2 Saturation 92 96 06/18/17 06/18/17 06/19/17 19:39 22:00 01:21 Temperature 36.8 C Heart Rate 55 L Heart Rate [ 52 L 50 L Brachial] Respiratory 18 20 Rate Blood Pressure 138/64 H 156/68 H [Right Brachial artery] O2 Saturation 94 96 06/19/17 06/19/17 06/19/17 02:19 06:30 08:06 Temperature 36.6 C 36.8 C Heart Rate Heart Rate [ 50 L 55 L 65 Brachial] Respiratory 17 17 Rate Blood Pressure 151/58 H 155/65 H 171/74 H [Right Brachial artery] O2 Saturation 99 97 06/19/17 11:47 Temperature 36.8 C Heart Rate Heart Rate [ 71 Brachial] Respiratory 20 Rate Blood Pressure 167/70 H [Right Brachial artery] O2 Saturation 93 Oxygen O2 Source Nasal cannula I&O (Last 24 Hrs): Intake and Output Totals x24h 06/17/17 06/18/17 06/19/17 23:59 23:59 23:59 Intake Total 315 Output Total 700 300 Balance -700 15 General: Alert, Oriented x3, Cooperative, Other (Anxious, breathing is more comfortable than yesterday) HEENT: Atraumatic, PERRLA, EOMI, Mucous membr. moist/pink Neck: Supple, No thyromegaly, +2 carotid pulse wo bruit, No LAD, Other (Mild JVD ) Lymphatic: no adenopathy Neuro: Alert, Non Focal, CN 2-12 Grossly Intact, Oriented Times 3 Cardiovascular: Other (Irregular, systolic murmur) Respiratory: Chest non-tender, Rales (Bilateral crackles), Rhonchi (Mild) Abdomen: Normal bowel sounds, Soft, No tenderness, No hepatospenomegaly Extremities: No clubbing, No cyanosis, Normal pulses, Other (Bilateral LE edema 1+) Skin: No rashes, No breakdown - Results Results: Laboratory Results WBC 11.3 x10^3/uL (4.8-10.8) H 06/19/17 05:40 RBC 3.59 10^6/uL (4.20-5.40) L 06/19/17 05:40 Hgb 12.4 g/dL (12.0-16.0) 06/19/17 05:40 Hct 36.5 % (37.0-47.0) L 06/19/17 05:40 MCV 101.8 fL (81.0-99.0) H 06/19/17 05:40 MCH 34.5 pg (27.0-31.0) H 06/19/17 05:40 MCHC 33.9 g/dL (32.0-36.0) 06/19/17 05:40 RDW 13.7 % (12.0-15.0) 06/19/17 05:40 Plt Count 202 10^3/uL (130-450) 06/19/17 05:40 MPV 8.2 fL (7.9-10.8) 06/19/17 05:40 Neut # 9.3 10^3/uL (1.5-6.6) H 06/19/17 05:40 Lymph # 1.0 10^3/uL (1.5-3.5) L 06/19/17 05:40 Converse # 0.9 10^3/uL (0.0-1.0) 06/19/17 05:40 Eos # 0.0 10^3/uL (0.0-0.7) 06/19/17 05:40 Baso # 0.1 10^3/uL (0.0-0.1) 06/19/17 05:40 Absolute Nucleated RBC 0.01 x10^3/uL 06/19/17 05:40 Nucleated RBCs 0.1 /100WBC 06/19/17 05:40 PT 21.5 secs (9.9-12.6) H 06/19/17 05:40 INR 1.9 (0.8-1.2) H 06/19/17 05:40 Sodium 128 mmol/L (135-145) L 06/19/17 05:40 Potassium 3.9 mmol/L (3.5-5.0) 06/19/17 05:40 Chloride 91 mmol/L (101-111) L 06/19/17 05:40 Carbon Dioxide 28 mmol/L (21-32) 06/19/17 05:40 Anion Gap 9.0 (6-13) 06/19/17 05:40 BUN 20 mg/dL (6-20) 06/19/17 05:40 Creatinine 1.3 mg/dL (0.4-1.0) H 06/19/17 05:40 Estimated GFR (MDRD) 40 (>89) L 06/19/17 05:40 Glucose 115 mg/dL (70-100) H 06/19/17 05:40 Glycated Hemoglobin 5.5 % (4.6-6.2) 06/19/17 05:40 Estim Average Glucose 111 (70-100) H 06/19/17 05:40 Calcium 9.1 mg/dL (8.5-10.3) 06/19/17 05:40 Phosphorus 4.3 mg/dL (2.5-4.6) 06/19/17 05:40 Magnesium 1.9 mg/dL (1.7-2.8) 06/19/17 05:40 Total Bilirubin 1.0 mg/dL (0.2-1.0) 06/19/17 05:40 AST 19 IU/L (10-42) 06/19/17 05:40 ALT 11 IU/L (10-60) 06/19/17 05:40 Alkaline Phosphatase 70 IU/L (42-121) 06/19/17 05:40 Troponin I < 0.04 ng/mL (<0.49) 06/18/17 11:30 B-Natriuretic Peptide 3938 pg/mL (5-100) H 06/19/17 05:40 Total Protein 6.2 g/dL (6.7-8.2) L 06/19/17 05:40 Albumin 3.2 g/dL (3.2-5.5) 06/19/17 05:40 Globulin 3.0 g/dL (2.1-4.2) 06/19/17 05:40 Albumin/Globulin Ratio 1.1 (1.0-2.2) 06/19/17 05:40 Lipase 45 U/L (22-51) 06/18/17 11:30 - Procedures Procedures: Procedures [employer] [employer] NEC (06/13/14)
[2017-06-19] MEDS: POTASSIUM CHLORIDE 20 MEQ TABLET PO SCH (14:00)
[2017-06-19] MEDS: WARFARIN 2.5 MG TABLET PO SCH (18:00)
[2017-06-19] MEDS ORDERED: ALPRAZolam 0.25 MG TABLET PO PRN (20:49)
[2017-06-20 05:31] LABS: BASOPHILS # (AUTO) 0.1 10^3/uL (0.0-0.1); BASOPHILS % (AUTO) 0.7 %; EOSINOPHILS % (AUTO) 0.4 %; HCT - HEMATOCRIT 34.7 % (37.0-47.0); LYMPHOCYTES # (AUTO) 1.2 10^3/uL (1.5-3.5); LYMPHOCYTES % (AUTO) 13.5 %; MEAN CORPUSCULAR HEMOGLOBIN 34.9 pg (27.0-31.0); MEAN CORPUSCULAR HGB CONC 34.4 g/dL (32.0-36.0); MEAN CORPUSCULAR VOLUME 101.4 fL (81.0-99.0); MEAN PLATELET VOLUME 7.4 fL (7.9-10.8); MONOCYTES # (AUTO) 1.2 10^3/uL (0.0-1.0); MONOCYTES % (AUTO) 12.6 %; NEUTROPHILS # (AUTO) 6.7 10^3/uL (1.5-6.6); NEUTROPHILS % (AUTO) 72.8 %; RED BLOOD COUNT 3.42 10^6/uL (4.20-5.40); RED CELL DISTRIBUTION WIDTH 13.6 % (12.0-15.0); UNCORRECTED WHITE BLOOD COUNT 9.2 x10^3/uL; WHITE BLOOD COUNT 9.2 x10^3/uL (4.8-10.8)
[2017-06-20 05:40] LABS: INR 2.2 (0.8-1.2); PT - PROTHROMBIN TIME 25.1 secs (9.9-12.6)
[2017-06-20 05:49] LABS: ALBUMIN/GLOBULIN RATIO 1.1 (1.0-2.2); BILIRUBIN,TOTAL 0.8 mg/dL (0.2-1.0); CALCIUM 8.7 mg/dL (8.5-10.3); CREATININE 1.5 mg/dL (0.4-1.0); MAGNESIUM 1.7 mg/dL (1.7-2.8); PHOSPHORUS 3.4 mg/dL (2.5-4.6); POTASSIUM 3.8 mmol/L (3.5-5.0); TOTAL PROTEIN 5.9 g/dL (6.7-8.2)
[2017-06-20] MEDS ORDERED: PHENAZOPYRIDINE 100 MG TABLET PO SCH (06:00)
[2017-06-20] MEDS: FUROSEMIDE 40 MG/4 ML VIAL IVP SCH ×2 (06:17→14:08)
[2017-06-20] MEDS: PANTOPRAZOLE 40 MG TABLET PO SCH (06:18)
[2017-06-20] MEDS: SODIUM CHLORIDE FLUSH 0.9% 10 ML SYRINGE IVP SCH ×3 (06:18→20:25)
[2017-06-20] MEDS: diltiaZEM CD 180 MG CAPSULE PO SCH (08:57)
[2017-06-20] MEDS: POTASSIUM CHLORIDE 20 MEQ TABLET PO SCH (08:57)
[2017-06-20] MEDS: LISINOPRIL 20 MG TABLET PO SCH (08:57)
[2017-06-20] MEDS: cefTRIAXone 2 GM in SODIUM CHLORIDE 0.9% MINIBAG 100 ML IV SCH (08:58)
[2017-06-20] MEDS: POLYETHYLENE GLYCOL 3350 17 GM PACKET PO SCH (08:58)
[2017-06-20] MEDS: ANASTROZOLE 1 MG TABLET PO SCH (08:58)
[2017-06-20] MEDS: METOPROLOL TARTRATE 50 MG TABLET PO SCH ×2 (09:06→20:26)
[2017-06-20] MEDS: AZITHROMYCIN INJ 500 MG in SODIUM CHLORIDE 0.9% 250 ML IV SCH (10:29)
--- NOTE | 2017-06-20 17:48 | PROVIDER PROGRESS NOTE ---
Assessment/Plan - Problem List (1) Acute respiratory failure with hypoxia Assessment/Plan: Patient presented with shortness of air and cough. Patient also admitted to having orthopnea and lower extremity swelling. Patient's BNP was elevated at about 1200. Patient was found to have crackles on examination Chest CT showed pulmonary edema with possible heart failure and concern for infection With exertion patient became hypoxic down to the 80s requiring NRB mask to get sats up to 90s She was given IV lasix with which her sats did improve and she was able to be weaned off O2 Patients BP was also uncontrolled on presentation Plan: Supplemental oxygen Continue IV Lasix 40 mg BID Continue IV antibiotics with ceftriaxone and azithromycin day 3 Echocardiogram shows moderate to severe mitral regurgitation and tricuspid regurgitation with preserved EF Telemetry monitoring Rate control of atrial fibrillation BP control Resolving down to 2L of O2 (2) Acute exacerbation of CHF (congestive heart failure) Conclusion/Plan: Patient presented with dyspnea for 1 weeks with exertion and at rest and went into respiratory failure with hypoxia on presentation requiring a NRB but has been improving with IV lasix Echo shows moderate to severe mitral and trcuspid regurgitation with preserved EF She continues to have pulmonary edema as evident on CT and on exam with LE swelling BNP this morning is 2620 down from 3938 Patients CHF is likely multifactorial secondary to valvular heart disease, A fib and uncontrolled hypertension Plan: Supplemental oxygen down to 2L today IV Lasix 40 mg IV BID with PO potassium supplement 1800 ml fluid restriction Telemetry monitoring Daily weights and strict I/Os Wean down O2 Negative 700 mL yesterday but increased 1lbs Continue to monitor Improving slowly Qualifiers: Congestive heart failure type: unspecified congestive heart failure type Qualified Code(s): I50.9 - Heart failure, unspecified (3) CAP (community acquired pneumonia) Conclusion/Plan: Patient has been having cough and shortness of air for the last several days. Patient was hypoxic in the emergency department with respiratory distress, tachypnea and use of the sensory muscles of breathing Chest x-ray showed significant infiltrates in the right lung the patient did have rhonchi on examination. Plan: Treat for Community acquired pneumonia with IV ceftriaxone azithromycin day 3 Supplemental oxygen Nebulizers as needed Improving (4) Hypertension Conclusion/Plan: Patient's blood pressure was severely elevated on presentation with systolic blood pressure of 209 and continued to be elevated during her stay in the emergency department. The patient's acute decompensation and hypoxia it is possible that she developed flash pulmonary edema secondary to hypertension Plan: Continue patient's home medications Monitor blood pressure closely Give IV antihypertensives if needed Give IV Lasix BP elevated but better controlled today will continue to titrate meds Monitor Qualifiers: Hypertension type: essential hypertension Qualified Code(s): I10 - Essential (primary) hypertension (5) Atrial fibrillation Conclusion/Plan: Patient history of atrial fibrillation on Coumadin. Chronic A. fib The patient's heart rate was elevated on presentation at 114. EKG shows atrial fibrillation Plan: Continue Coumadin INR is 2.2 monitor daily Continue home dose of metoprolol Telemetry monitoring Titrate beta ashia as needed to maintain normal heart rate HR is stable Qualifiers: Atrial fibrillation type: chronic Qualified Code(s): I48.2 - Chronic atrial fibrillation (6) Hyponatremia Conclusion/Plan: Likely hypervolemic hyponatremia secondary to CHF exacerbation Na improved with diuresis increased to 127 from 124 today Plan: IV Lasix Monitor sodium Fluid restriction Treat pneumonia (7) Anxiety Conclusion/Plan: Patient has history of anxiety and feels very anxious with all that is going on and is requesting something for her anxiety Will give her low dose of xanax and monitor (8) Hypomagnesemia Conclusion/Plan: Resolved - Current Meds Current Meds: Current Medications Generic Name Dose Route Start Last Admin Trade Name Freq PRN Reason Stop Dose Admin Albuterol/Ipratropium 3 ml 06/18/17 16:15 06/19/17 01:20 Duoneb INH 3 ml Q4HR PRN Administration Wheezing Anastrozole 1 mg 06/19/17 09:00 06/20/17 08:58 Anastrozole PO 1 mg DAILY LAKISHA Administration Diltiazem HCl 180 mg 06/19/17 09:00 06/20/17 08:57 Cardizem Cd PO 180 mg DAILY LAKISHA Administration Furosemide 40 mg 06/19/17 06:00 06/20/17 14:08 Lasix Inj 40 Mg Vial IVP 40 mg BIDDIURETIC LAKISHA Administration Azithromycin 500 mg/ Sodium 250 mls @ 250 mls/hr 06/18/17 17:00 06/20/17 10:29 Chloride IV 250 mls/hr DAILY@1000 LAKISHA Administration Ceftriaxone Sodium 2 gm/ 100 mls @ 200 mls/hr 06/18/17 16:00 06/20/17 08:58 Sodium Chloride IV 200 mls/hr DAILY LAKISHA Administration Lisinopril 40 mg 06/18/17 16:00 06/20/17 08:57 Zestril PO 40 mg DAILY LAKISHA Administration Metoprolol Tartrate 50 mg 06/18/17 21:44 06/20/17 09:06 Lopressor PO 50 mg BID LAKISHA Administration Pantoprazole Sodium 40 mg 06/19/17 07:00 06/20/17 06:18 Protonix PO 40 mg QDAC LAKISHA Administration Polyethylene Glycol 17 gm 06/19/17 09:00 06/20/17 08:58 Miralax PO Not Given DAILY LAKISHA Potassium Chloride 20 meq 06/19/17 13:00 06/20/17 08:57 K-Dur PO 20 meq DAILYWM LAKISAH Administration Sodium Chloride 10 ml 06/18/17 13:19 06/19/17 08:34 Normal Saline Flush 0.9% IVP 10 ml PRN PRN Administration NEEDED PER PROVIDER ORDERS Sodium Chloride 10 ml 06/18/17 22:00 06/20/17 14:23 Normal Saline Flush 0.9% IVP Not Given Q8HR LAKISHA Warfarin Sodium 5 mg 06/20/17 18:00 06/20/17 17:12 Coumadin PO 5 mg [id number]@1800 LAKISHA Administration Warfarin Sodium 2.5 mg 06/18/17 18:00 06/19/17 18:00 Coumadin PO 2.5 mg [id number]@1800 LAKISHA Administration Zolpidem Tartrate 5 mg 06/18/17 13:19 06/19/17 21:33 Ambien PO 5 mg QPM PRN Administration Insomnia - Lab Result Lab results reviewed: Yes Fish Bone Diagrams: 06/20/17 05:23 06/20/17 05:23 - Diagnostic Imaging Results Diagnostic Imaging Results: Final report reviewed - Additional Planning Condition/Complexity: Improved Plan Discussed with:: Patient Time Spent: 31-60 minutes Subjective - Subjective Patient Reports: Shortness of Breath (COntinues to feel short of air. Cough is improved. Very anxious) Nursing Reports: No Complaints Objective Vital Signs: Vital Signs - 24 hr 06/19/17 06/20/17 06/20/17 20:07 00:18 05:00 Temperature 37.1 C 36.8 C 37.0 C Heart Rate Heart Rate [ 70 66 58 L Brachial] Respiratory 18 20 20 Rate Blood Pressure 153/64 H 150/73 H 161/69 H [Right Brachial artery] O2 Saturation 93 96 97 06/20/17 06/20/17 06/20/17 08:00 09:10 12:29 Temperature 36.6 C 37.2 C Heart Rate 74 Heart Rate [ 62 63 Brachial] Respiratory 16 16 20 Rate Blood Pressure 151/61 H 128/66 [Right Brachial artery] O2 Saturation 94 90 L 06/20/17 15:25 Temperature 36.7 C Heart Rate Heart Rate [ 62 Brachial] Respiratory 20 Rate Blood Pressure 156/55 H [Right Brachial artery] O2 Saturation 95 Oxygen O2 Source Room air I&O (Last 24 Hrs): Intake and Output Totals x24h 06/18/17 06/19/17 06/20/17 23:59 23:59 23:59 Intake Total 1235 650 Output Total 700 1600 1050 Balance -700 365 -400 General: Alert, Oriented x3, Cooperative, No acute distress HEENT: Atraumatic, PERRLA, EOMI, Mucous membr. moist/pink Neck: Supple, No JVD, No thyromegaly, +2 carotid pulse wo bruit, No LAD Lymphatic: no adenopathy Neuro: Alert, Non Focal, CN 2-12 Grossly Intact, Oriented Times 3 Cardiovascular: Other (Systolic murmur, irregular) Respiratory: Chest non-tender, Rales (Bilateral at bases), Rhonchi Abdomen: Normal bowel sounds, Soft, No tenderness, No hepatospenomegaly Rectal: Non-Tender Extremities: No clubbing, Normal pulses, Other (Bilateral LE edema 1+) Skin: No rashes, No breakdown - Results Results: Laboratory Results WBC 9.2 x10^3/uL (4.8-10.8) 06/20/17 05:23 RBC 3.42 10^6/uL (4.20-5.40) L 06/20/17 05:23 Hgb 12.0 g/dL (12.0-16.0) 06/20/17 05:23 Hct 34.7 % (37.0-47.0) L 06/20/17 05:23 MCV 101.4 fL (81.0-99.0) H 06/20/17 05:23 MCH 34.9 pg (27.0-31.0) H 06/20/17 05:23 MCHC 34.4 g/dL (32.0-36.0) 06/20/17 05:23 RDW 13.6 % (12.0-15.0) 06/20/17 05:23 Plt Count 181 10^3/uL (130-450) 06/20/17 05:23 MPV 7.4 fL (7.9-10.8) L 06/20/17 05:23 Neut # 6.7 10^3/uL (1.5-6.6) H 06/20/17 05:23 Lymph # 1.2 10^3/uL (1.5-3.5) L 06/20/17 05:23 Mclean # 1.2 10^3/uL (0.0-1.0) H 06/20/17 05:23 Eos # 0.0 10^3/uL (0.0-0.7) 06/20/17 05:23 Baso # 0.1 10^3/uL (0.0-0.1) 06/20/17 05:23 Absolute Nucleated RBC 0.00 x10^3/uL 06/20/17 05:23 Nucleated RBCs 0.0 /100WBC 06/20/17 05:23 PT 25.1 secs (9.9-12.6) H 06/20/17 05:23 INR 2.2 (0.8-1.2) H 06/20/17 05:23 Sodium 127 mmol/L (135-145) L 06/20/17 05:23 Potassium 3.8 mmol/L (3.5-5.0) 06/20/17 05:23 Chloride 90 mmol/L (101-111) L 06/20/17 05:23 Carbon Dioxide 28 mmol/L (21-32) 06/20/17 05:23 Anion Gap 9.0 (6-13) 06/20/17 05:23 BUN 21 mg/dL (6-20) H 06/20/17 05:23 Creatinine 1.5 mg/dL (0.4-1.0) H 06/20/17 05:23 Estimated GFR (MDRD) 34 (>89) L 06/20/17 05:23 Glucose 109 mg/dL (70-100) H 06/20/17 05:23 Glycated Hemoglobin 5.5 % (4.6-6.2) 06/19/17 05:40 Estim Average Glucose 111 (70-100) H 06/19/17 05:40 Calcium 8.7 mg/dL (8.5-10.3) 06/20/17 05:23 Phosphorus 3.4 mg/dL (2.5-4.6) 06/20/17 05:23 Magnesium 1.7 mg/dL (1.7-2.8) 06/20/17 05:23 Total Bilirubin 0.8 mg/dL (0.2-1.0) 06/20/17 05:23 AST 17 IU/L (10-42) 06/20/17 05:23 ALT 10 IU/L (10-60) 06/20/17 05:23 Alkaline Phosphatase 57 IU/L (42-121) 06/20/17 05:23 Troponin I < 0.04 ng/mL (<0.49) 06/18/17 11:30 B-Natriuretic Peptide 2620 pg/mL (5-100) H 06/20/17 05:23 Total Protein 5.9 g/dL (6.7-8.2) L 06/20/17 05:23 Albumin 3.1 g/dL (3.2-5.5) L 06/20/17 05:23 Globulin 2.8 g/dL (2.1-4.2) 06/20/17 05:23 Albumin/Globulin Ratio 1.1 (1.0-2.2) 06/20/17 05:23 Lipase 45 U/L (22-51) 06/18/17 11:30 - Procedures Procedures: Procedures EXCISE MINOR LES LID NEC (06/13/14)
[2017-06-20] MEDS ORDERED: WARFARIN 5 MG TABLET PO SCH (18:00)
[2017-06-21 05:46] LABS: BASOPHILS # (AUTO) 0.1 10^3/uL (0.0-0.1); BASOPHILS % (AUTO) 0.9 %; EOSINOPHILS # (AUTO) 0.1 10^3/uL (0.0-0.7); EOSINOPHILS % (AUTO) 0.9 %; HCT - HEMATOCRIT 35.8 % (37.0-47.0); HGB - HEMOGLOBIN 12.1 g/dL (12.0-16.0); LYMPHOCYTES # (AUTO) 1.3 10^3/uL (1.5-3.5); LYMPHOCYTES % (AUTO) 13.9 %; MEAN CORPUSCULAR HEMOGLOBIN 34.4 pg (27.0-31.0); MEAN CORPUSCULAR HGB CONC 33.9 g/dL (32.0-36.0); MEAN CORPUSCULAR VOLUME 101.5 fL (81.0-99.0); MEAN PLATELET VOLUME 7.9 fL (7.9-10.8); MONOCYTES # (AUTO) 1.2 10^3/uL (0.0-1.0); MONOCYTES % (AUTO) 12.4 %; NEUTROPHILS # (AUTO) 6.9 10^3/uL (1.5-6.6); NEUTROPHILS % (AUTO) 71.9 %; RED BLOOD COUNT 3.52 10^6/uL (4.20-5.40); RED CELL DISTRIBUTION WIDTH 13.1 % (12.0-15.0); UNCORRECTED WHITE BLOOD COUNT 9.6 x10^3/uL; WHITE BLOOD COUNT 9.6 x10^3/uL (4.8-10.8)
[2017-06-21 05:52] LABS: INR 2.4 (0.8-1.2); PT - PROTHROMBIN TIME 26.8 secs (9.9-12.6)
[2017-06-21 06:01] LABS: BILIRUBIN,TOTAL 0.9 mg/dL (0.2-1.0); CALCIUM 8.7 mg/dL (8.5-10.3); CREATININE 1.4 mg/dL (0.4-1.0); POTASSIUM 3.4 mmol/L (3.5-5.0); TOTAL PROTEIN 6.1 g/dL (6.7-8.2)
[2017-06-21] MEDS: PANTOPRAZOLE 40 MG TABLET PO SCH (06:30)
[2017-06-21] MEDS: FUROSEMIDE 40 MG/4 ML VIAL IVP SCH (06:30)
[2017-06-21] MEDS: SODIUM CHLORIDE FLUSH 0.9% 10 ML SYRINGE IVP SCH ×3 (06:31→20:23)
[2017-06-21] MEDS: SODIUM CHLORIDE FLUSH 0.9% 10 ML SYRINGE IVP PRN (06:31)
[2017-06-21] MEDS: diltiaZEM CD 180 MG CAPSULE PO SCH (09:42)
[2017-06-21] MEDS: ANASTROZOLE 1 MG TABLET PO SCH (09:42)
[2017-06-21] MEDS: cefTRIAXone 2 GM in SODIUM CHLORIDE 0.9% MINIBAG 100 ML IV SCH (09:42)
[2017-06-21] MEDS: METOPROLOL TARTRATE 50 MG TABLET PO SCH ×2 (09:42→20:22)
[2017-06-21] MEDS: POTASSIUM CHLORIDE 20 MEQ TABLET PO SCH (09:42)
[2017-06-21] MEDS: LISINOPRIL 20 MG TABLET PO SCH (09:43)
[2017-06-21] MEDS: POLYETHYLENE GLYCOL 3350 17 GM PACKET PO SCH (09:43)
[2017-06-21] MEDS: AZITHROMYCIN INJ 500 MG in SODIUM CHLORIDE 0.9% 250 ML IV SCH (11:24)
--- NOTE | 2017-06-21 13:09 | PROVIDER PROGRESS NOTE ---
Assessment/Plan - Problem List (1) Acute exacerbation of CHF (congestive heart failure) Qualifiers: Congestive heart failure type: unspecified congestive heart failure type Qualified Code(s): I50.9 - Heart failure, unspecified Assessment/Plan: Patient presented with dyspnea for 1 weeks with exertion and at rest and went into respiratory failure with hypoxia on presentation requiring a NRB but has been improving with IV lasix Echo shows moderate to severe mitral and trcuspid regurgitation with preserved EF BNP is improving Patients CHF is likely multifactorial secondary to valvular heart disease, A fib and uncontrolled hypertension Plan: Supplemental oxygen weaning down IV Lasix 40 mg IV BID to daily today then eventually po and PO potassium supplement Check lytes and Mg Telemetry monitoring Daily weights and strict I/Os Continue to monitor with increased activity today: OOB to chair when external urinary catheter to be discontinued Improving slowly (2) CAP (community acquired pneumonia) Assessment/Plan: Chest x-ray showed significant infiltrates in the right lung the patient did have rhonchi on examination. Treat for Community acquired pneumonia with IV ceftriaxone azithromycin Supplemental oxygen Nebulizers as needed Improving (3) Hypertension Qualifiers: Hypertension type: essential hypertension Qualified Code(s): I10 - Essential (primary) hypertension Assessment/Plan: Patient's blood pressure was severely elevated on presentation with systolic blood pressure of 209 and continued to be elevated during her stay in the emergency department. The patient's acute decompensation and hypoxia it is possible that she developed flash pulmonary edema secondary to hypertension BP has now improved on meds. Pt reports she does use prepared foods containing salt. Continue patient's home medications Monitor blood pressure closely Give IV antihypertensives if needed Given IV Lasix Will order Nutrition consult to teach re: low salt diet (4) Pulmonary HTN Assessment/Plan: Echo showed PA pressure of 65 mmHg - moderate pulmonary HTN. Likely cause is valvular disease and may be worsened by pneumonia Continue to treat as per plan above (5) Mitral valve regurgitation Qualifiers: Cardiac valve disease etiology: etiology unspecified Qualified Code(s): I34.0 - Nonrheumatic mitral (valve) insufficiency Assessment/Plan: Likely etiology from longstanding HTN and annular dilitation. The latter is also evidenced by severe left atrial enlargement. Strict BP control would be beneficial. BP meds continued and BP control improved since admitted. (6) Atrial fibrillation Qualifiers: Atrial fibrillation type: chronic Qualified Code(s): I48.2 - Chronic atrial fibrillation Assessment/Plan: Rate is controlled. (7) Breast CA Assessment/Plan: On chemo, immunocompromised and Pt was at higher risk for infection. - Current Meds Current Meds: Current Medications Generic Name Dose Route Start Last Admin Trade Name Freq PRN Reason Stop Dose Admin Albuterol/Ipratropium 3 ml 06/18/17 16:15 06/19/17 01:20 Duoneb INH 3 ml Q4HR PRN Administration Wheezing Anastrozole 1 mg 06/19/17 09:00 06/21/17 09:42 Anastrozole PO 1 mg DAILY LAKISHA Administration Diltiazem HCl 180 mg 06/19/17 09:00 06/21/17 09:42 Cardizem Cd PO 180 mg DAILY LAKISHA Administration Azithromycin 500 mg/ Sodium 250 mls @ 250 mls/hr 06/18/17 17:00 06/21/17 11:24 Chloride IV 250 mls/hr DAILY@1000 LAKISHA Administration Ceftriaxone Sodium 2 gm/ 100 mls @ 200 mls/hr 06/18/17 16:00 06/21/17 09:42 Sodium Chloride IV 200 mls/hr DAILY LAKISHA Administration Lisinopril 40 mg 06/18/17 16:00 06/21/17 09:43 Zestril PO 40 mg DAILY LAKISHA Administration Metoprolol Tartrate 50 mg 06/18/17 21:44 06/21/17 09:42 Lopressor PO 50 mg BID LAKISHA Administration Pantoprazole Sodium 40 mg 06/19/17 07:00 06/21/17 06:30 Protonix PO 40 mg QDAC LAKISHA Administration Polyethylene Glycol 17 gm 06/19/17 09:00 06/21/17 09:43 Miralax PO Not Given DAILY LAKISHA Potassium Chloride 20 meq 06/19/17 13:00 06/21/17 09:42 K-Dur PO 20 meq DAILYWM LAKISHA Administration Sodium Chloride 10 ml 06/18/17 13:19 06/21/17 06:31 Normal Saline Flush 0.9% IVP 10 ml PRN PRN Administration NEEDED PER PROVIDER ORDERS Sodium Chloride 10 ml 06/18/17 22:00 06/21/17 06:31 Normal Saline Flush 0.9% IVP 10 ml Q8HR LAKISHA Administration Warfarin Sodium 5 mg 06/20/17 18:00 06/20/17 17:12 Coumadin PO 5 mg [id number]@1800 LAKISHA Administration Warfarin Sodium 2.5 mg 06/18/17 18:00 06/19/17 18:00 Coumadin PO 2.5 mg [id number]@1800 LAKISHA Administration Zolpidem Tartrate 5 mg 06/18/17 13:19 06/19/17 21:33 Ambien PO 5 mg QPM PRN Administration Insomnia - Lab Result Fish Bone Diagrams: 06/21/17 05:27 06/21/17 05:27 - Additional Planning My Orders: My Active Orders 06/21/17 Dietary [Nutrition Consult] [CONS] Routine 06/21/17 11:26 Miscellaenous Nursing Order [RC] QSHIFT 06/21/17 Dinner DIET [Low Sodium Diet] [DIET] 06/22/17 06:00 BMP - BASIC METABOLIC PANEL [CHEM] Routine MAGNESIUM [CHEM] Routine 06/22/17 09:00 FUROSEMIDE INJ 40mg VIAL [LASIX INJ 40 mg VIAL] 40 mg IVP DAILY Subjective - Subjective Patient Reports: Feeling Better Nursing Reports: Other (Pt wants external urinary catheter DCd before she will be OOB in chair.) Objective Vital Signs: Vital Signs - 24 hr 06/20/17 06/20/17 06/20/17 15:25 20:26 20:43 Temperature 36.7 C 36.8 C Heart Rate [ 62 70 Brachial] Respiratory 20 20 Rate Blood Pressure 154/67 H Blood Pressure 156/55 H 162/66 H [Right Brachial artery] O2 Saturation 95 94 06/20/17 06/21/17 06/21/17 23:42 05:00 07:14 Temperature 37.3 C 36.6 C 36.6 C Heart Rate [ 54 L 60 75 Brachial] Respiratory 16 16 20 Rate Blood Pressure Blood Pressure 149/53 H 157/47 H 148/57 H [Right Brachial artery] O2 Saturation 92 93 95 06/21/17 06/21/17 09:42 11:30 Temperature 36.7 C Heart Rate [ 56 L Brachial] Respiratory 16 Rate Blood Pressure 148/57 H Blood Pressure 151/55 H [Right Brachial artery] O2 Saturation 95 Oxygen O2 Source Room air I&O (Last 24 Hrs): Intake and Output Totals x24h 06/19/17 06/20/17 06/21/17 23:59 23:59 23:59 Intake Total 1235 860 120 Output Total 1600 1250 320 Balance -365 -390 -200 General: Alert, Oriented x3 HEENT: Atraumatic, PERRLA, Mucous membr. moist/pink Neck: Supple, No JVD Neuro: Alert Cardiovascular: Regular rate, Other (1/6 systolic murmur at LLSB, no gallop or RV heave.) Abdomen: Soft Extremities: No edema - Results Results: Laboratory Results WBC 9.6 x10^3/uL (4.8-10.8) 06/21/17 05:27 RBC 3.52 10^6/uL (4.20-5.40) L 06/21/17 05:27 Hgb 12.1 g/dL (12.0-16.0) 06/21/17 05:27 Hct 35.8 % (37.0-47.0) L 06/21/17 05:27 MCV 101.5 fL (81.0-99.0) H 06/21/17 05:27 MCH 34.4 pg (27.0-31.0) H 06/21/17 05:27 MCHC 33.9 g/dL (32.0-36.0) 06/21/17 05:27 RDW 13.1 % (12.0-15.0) 06/21/17 05:27 Plt Count 192 10^3/uL (130-450) 06/21/17 05:27 MPV 7.9 fL (7.9-10.8) 06/21/17 05:27 Neut # 6.9 10^3/uL (1.5-6.6) H 06/21/17 05:27 Lymph # 1.3 10^3/uL (1.5-3.5) L 06/21/17 05:27 [place] # 1.2 10^3/uL (0.0-1.0) H 06/21/17 05:27 Eos # 0.1 10^3/uL (0.0-0.7) 06/21/17 05:27 Baso # 0.1 10^3/uL (0.0-0.1) 06/21/17 05:27 Absolute Nucleated RBC 0.00 x10^3/uL 06/21/17 05:27 Nucleated RBCs 0.0 /100WBC 06/21/17 05:27 PT 26.8 secs (9.9-12.6) H 06/21/17 05:27 INR 2.4 (0.8-1.2) H 06/21/17 05:27 Sodium 130 mmol/L (135-145) L 06/21/17 05:27 Potassium 3.4 mmol/L (3.5-5.0) L 06/21/17 05:27 Chloride 92 mmol/L (101-111) L 06/21/17 05:27 Carbon Dioxide 27 mmol/L (21-32) 06/21/17 05:27 Anion Gap 11.0 (6-13) 06/21/17 05:27 BUN 22 mg/dL (6-20) H 06/21/17 05:27 Creatinine 1.4 mg/dL (0.4-1.0) H 06/21/17 05:27 Estimated GFR (MDRD) 37 (>89) L 06/21/17 05:27 Glucose 100 mg/dL (70-100) 06/21/17 05:27 Glycated Hemoglobin 5.5 % (4.6-6.2) 06/19/17 05:40 Estim Average Glucose 111 (70-100) H 06/19/17 05:40 Calcium 8.7 mg/dL (8.5-10.3) 06/21/17 05:27 Phosphorus 3.4 mg/dL (2.5-4.6) 06/20/17 05:23 Magnesium 1.7 mg/dL (1.7-2.8) 06/20/17 05:23 Total Bilirubin 0.9 mg/dL (0.2-1.0) 06/21/17 05:27 AST 17 IU/L (10-42) 06/21/17 05:27 ALT 10 IU/L (10-60) 06/21/17 05:27 Alkaline Phosphatase 61 IU/L (42-121) 06/21/17 05:27 Troponin I < 0.04 ng/mL (<0.49) 06/18/17 11:30 B-Natriuretic Peptide 1373 pg/mL (5-100) H 06/21/17 05:27 Total Protein 6.1 g/dL (6.7-8.2) L 06/21/17 05:27 Albumin 3.1 g/dL (3.2-5.5) L 06/21/17 05:27 Globulin 3.0 g/dL (2.1-4.2) 06/21/17 05:27 Albumin/Globulin Ratio 1.0 (1.0-2.2) 06/21/17 05:27 Lipase 45 U/L (22-51) 06/18/17 11:30 - Procedures Procedures: Procedures [facility] [employer] L[facility] NEC (06/13/14)
[2017-06-21] MEDS: WARFARIN 2.5 MG TABLET PO SCH (17:38)
[2017-06-22 06:00] LABS: CALCIUM 8.6 mg/dL (8.5-10.3); CREATININE 1.4 mg/dL (0.4-1.0); MAGNESIUM 1.5 mg/dL (1.7-2.8); POTASSIUM 3.6 mmol/L (3.5-5.0)
[2017-06-22] MEDS: SODIUM CHLORIDE FLUSH 0.9% 10 ML SYRINGE IVP SCH ×3 (06:11→22:04)
[2017-06-22] MEDS: PANTOPRAZOLE 40 MG TABLET PO SCH (06:11)
[2017-06-22] MEDS ORDERED: FUROSEMIDE 40 MG/4 ML VIAL IVP SCH (09:00)
[2017-06-22] MEDS: METOPROLOL TARTRATE 50 MG TABLET PO SCH ×2 (09:19→22:04)
[2017-06-22] MEDS: LISINOPRIL 20 MG TABLET PO SCH (09:19)
[2017-06-22] MEDS: ANASTROZOLE 1 MG TABLET PO SCH (09:20)
[2017-06-22] MEDS: POTASSIUM CHLORIDE 20 MEQ TABLET PO SCH (09:20)
[2017-06-22] MEDS: diltiaZEM CD 180 MG CAPSULE PO SCH (09:28)
[2017-06-22] MEDS: cefTRIAXone 2 GM in SODIUM CHLORIDE 0.9% MINIBAG 100 ML IV SCH (09:29)
[2017-06-22] MEDS: POLYETHYLENE GLYCOL 3350 17 GM PACKET PO SCH (09:29)
[2017-06-22] MEDS: AZITHROMYCIN INJ 500 MG in SODIUM CHLORIDE 0.9% 250 ML IV SCH (10:23)
[2017-06-22] MEDS ORDERED: ONDANSETRON ODT 4 MG TABLET ONE (13:45)
--- NOTE | 2017-06-22 15:25 | PROVIDER PROGRESS NOTE ---
Assessment/Plan - Problem List (1) Acute exacerbation of CHF (congestive heart failure) Qualifiers: Congestive heart failure type: unspecified congestive heart failure type Qualified Code(s): I50.9 - Heart failure, unspecified Assessment/Plan: Assessment/Plan: Patient presented with dyspnea for 1 weeks with exertion and at rest and went into respiratory failure with hypoxia on presentation requiring a NRB but has been improving with IV lasix Echo shows moderate to severe mitral and trcuspid regurgitation with preserved EF BNP is improving Patients CHF is likely multifactorial secondary to valvular heart disease, A fib and uncontrolled hypertension Plan: Supplemental oxygen weaned to R.A. IV Lasix 40 mg IV daily today then tomorrow po and PO potassium supplement Following lytes and Mg Telemetry monitoring as OOB and walking Daily weights and strict I/Os (2) CAP (community acquired pneumonia) Assessment/Plan: Chest x-ray showed significant infiltrates in the right lung Pt on Day # 4 of antibiotics Supplemental oxygen Nebulizers as needed Improving (3) Hypertension Qualifiers: Hypertension type: essential hypertension Qualified Code(s): I10 - Essential (primary) hypertension Assessment/Plan: Stable on current management (4) Pulmonary HTN Assessment/Plan: No SOB with first brief ambulation today and comfortable OOB in chair (5) Mitral valve regurgitation Qualifiers: Cardiac valve disease etiology: etiology unspecified Qualified Code(s): I34.0 - Nonrheumatic mitral (valve) insufficiency Assessment/Plan: Stable (6) Atrial fibrillation Qualifiers: Atrial fibrillation type: chronic Qualified Code(s): I48.2 - Chronic atrial fibrillation Assessment/Plan: Rate controlled but only minimal activity as of yet. Continue present HR slowing meds and Coumadin - Current Meds Current Meds: Current Medications Generic Name Dose Route Start Last Admin Trade Name Freq PRN Reason Stop Dose Admin Albuterol/Ipratropium 3 ml 06/18/17 16:15 06/19/17 01:20 Duoneb INH 3 ml Q4HR PRN Administration Wheezing Anastrozole 1 mg 06/19/17 09:00 06/22/17 09:20 Anastrozole PO 1 mg DAILY LAKISHA Administration Diltiazem HCl 180 mg 06/19/17 09:00 06/22/17 09:28 Cardizem Cd PO 180 mg DAILY LAKISHA Administration Furosemide 40 mg 06/22/17 09:00 06/22/17 09:26 Lasix Inj 40 Mg Vial IVP 40 mg DAILY LAKISHA Administration Azithromycin 500 mg/ Sodium 250 mls @ 250 mls/hr 06/18/17 17:00 06/22/17 10:23 Chloride IV 250 mls/hr DAILY@1000 LAKISHA Administration Ceftriaxone Sodium 2 gm/ 100 mls @ 200 mls/hr 06/18/17 16:00 06/22/17 09:29 Sodium Chloride IV 200 mls/hr DAILY LAKISHA Administration Lisinopril 40 mg 06/18/17 16:00 06/22/17 09:19 Zestril PO 40 mg DAILY LAKISHA Administration Metoprolol Tartrate 50 mg 06/18/17 21:44 06/22/17 09:19 Lopressor PO 50 mg BID LAKISHA Administration Pantoprazole Sodium 40 mg 06/19/17 07:00 06/22/17 06:11 Protonix PO 40 mg QDAC LAKISHA Administration Polyethylene Glycol 17 gm 06/19/17 09:00 06/22/17 09:29 Miralax PO Not Given DAILY [facility] Potassium Chloride 20 meq 06/19/17 13:00 06/22/17 09:20 K-Dur PO 20 meq DAILYWM LAKISHA Administration Sodium Chloride 10 ml 06/18/17 13:19 06/21/17 06:31 Normal Saline Flush 0.9% IVP 10 ml PRN PRN Administration NEEDED PER PROVIDER ORDERS Sodium Chloride 10 ml 06/18/17 22:00 06/22/17 09:26 Normal Saline Flush 0.9% IVP 10 ml Q8HR LAKISHA Administration Warfarin Sodium 5 mg 06/20/17 18:00 06/20/17 17:12 Coumadin PO 5 mg MoFr@1800 LAKISHA Administration Warfarin Sodium 2.5 mg 06/18/17 18:00 06/21/17 17:38 Coumadin PO 2.5 mg [id number]@1800 LAKISHA Administration Zolpidem Tartrate 5 mg 06/18/17 13:19 06/19/17 21:33 Ambien PO 5 mg QPM PRN Administration Insomnia - Lab Result Fish Bone Diagrams: 06/21/17 05:27 06/22/17 05:30 - Additional Planning My Orders: My Active Orders 06/21/17 Dinner DIET [Low Sodium Diet] [DIET] 06/22/17 09:00 FUROSEMIDE INJ 40mg VIAL [LASIX INJ 40 mg VIAL] 40 mg IVP DAILY Subjective - Subjective Patient Reports: Feeling Better Nursing Reports: No Complaints Objective Vital Signs: Vital Signs - 24 hr 06/21/17 06/21/17 06/21/17 15:50 20:17 20:22 Temperature 36.2 C L 36.2 C L Heart Rate Heart Rate [ 57 L 63 Brachial] Respiratory 16 16 Rate Blood Pressure 163/67 H Blood Pressure 154/55 H 163/67 H [Right Brachial artery] O2 Saturation 96 95 06/21/17 06/22/17 06/22/17 20:58 00:21 05:38 Temperature 36.3 C L 36.8 C Heart Rate 74 Heart Rate [ 63 64 Brachial] Respiratory 16 18 18 Rate Blood Pressure Blood Pressure 157/70 H 149/67 H [Right Brachial artery] O2 Saturation 97 95 06/22/17 06/22/17 06/22/17 07:45 07:53 09:19 Temperature 36.4 C L Heart Rate 70 Heart Rate [ 72 Brachial] Respiratory 18 16 Rate Blood Pressure 110/78 Blood Pressure 156/55 H [Right Brachial artery] O2 Saturation 95 06/22/17 11:15 Temperature 36.4 C L Heart Rate Heart Rate [ 54 L Brachial] Respiratory 18 Rate Blood Pressure Blood Pressure 134/76 H [Right Brachial artery] O2 Saturation 100 Oxygen O2 Source Room air I&O (Last 24 Hrs): Intake and Output Totals x24h 06/20/17 06/21/17 06/22/17 23:59 23:59 23:59 Intake Total 141 819 0613 Output Total 1250 1320 180 Balance -390 -660 905 General: Alert, Oriented x3, Cooperative HEENT: Atraumatic, Mucous membr. moist/pink Neck: Supple, No JVD Neuro: Alert Cardiovascular: Other (Afib, rate controlled) Respiratory: No respiratory distress Extremities: No edema - Results Results: Laboratory Results WBC 9.6 x10^3/uL (4.8-10.8) 06/21/17 05:27 RBC 3.52 10^6/uL (4.20-5.40) L 06/21/17 05:27 Hgb 12.1 g/dL (12.0-16.0) 06/21/17 05:27 Hct 35.8 % (37.0-47.0) L 06/21/17 05:27 MCV 101.5 fL (81.0-99.0) H 06/21/17 05:27 MCH 34.4 pg (27.0-31.0) H 06/21/17 05:27 MCHC 33.9 g/dL (32.0-36.0) 06/21/17 05:27 RDW 13.1 % (12.0-15.0) 06/21/17 05:27 Plt Count 192 10^3/uL (130-450) 06/21/17 05:27 MPV 7.9 fL (7.9-10.8) 06/21/17 05:27 Neut # 6.9 10^3/uL (1.5-6.6) H 06/21/17 05:27 Lymph # 1.3 10^3/uL (1.5-3.5) L 06/21/17 05:27 [place] # 1.2 10^3/uL (0.0-1.0) H 06/21/17 05:27 Eos # 0.1 10^3/uL (0.0-0.7) 06/21/17 05:27 Baso # 0.1 10^3/uL (0.0-0.1) 06/21/17 05:27 Absolute Nucleated RBC 0.00 x10^3/uL 06/21/17 05:27 Nucleated RBCs 0.0 /100WBC 06/21/17 05:27 PT 26.8 secs (9.9-12.6) H 06/21/17 05:27 INR 2.4 (0.8-1.2) H 06/21/17 05:27 Sodium 129 mmol/L (135-145) L 06/22/17 05:30 Potassium 3.6 mmol/L (3.5-5.0) 06/22/17 05:30 Chloride 91 mmol/L (101-111) L 06/22/17 05:30 Carbon Dioxide 29 mmol/L (21-32) 06/22/17 05:30 Anion Gap 9.0 (6-13) 06/22/17 05:30 BUN 24 mg/dL (6-20) H 06/22/17 05:30 Creatinine 1.4 mg/dL (0.4-1.0) H 06/22/17 05:30 Estimated GFR (MDRD) 37 (>89) L 06/22/17 05:30 Glucose 105 mg/dL (70-100) H 06/22/17 05:30 Glycated Hemoglobin 5.5 % (4.6-6.2) 06/19/17 05:40 Estim Average Glucose 111 (70-100) H 06/19/17 05:40 Calcium 8.6 mg/dL (8.5-10.3) 06/22/17 05:30 Phosphorus 3.4 mg/dL (2.5-4.6) 06/20/17 05:23 Magnesium 1.5 mg/dL (1.7-2.8) L 06/22/17 05:30 Total Bilirubin 0.9 mg/dL (0.2-1.0) 06/21/17 05:27 AST 17 IU/L (10-42) 06/21/17 05:27 ALT 10 IU/L (10-60) 06/21/17 05:27 Alkaline Phosphatase 61 IU/L (42-121) 06/21/17 05:27 Troponin I < 0.04 ng/mL (<0.49) 06/18/17 11:30 B-Natriuretic Peptide 1373 pg/mL (5-100) H 06/21/17 05:27 Total Protein 6.1 g/dL (6.7-8.2) L 06/21/17 05:27 Albumin 3.1 g/dL (3.2-5.5) L 06/21/17 05:27 Globulin 3.0 g/dL (2.1-4.2) 06/21/17 05:27 Albumin/Globulin Ratio 1.0 (1.0-2.2) 06/21/17 05:27 Lipase 45 U/L (22-51) 06/18/17 11:30 - Procedures Procedures: Procedures [facility]CISE [facility] LES LID NEC (06/13/14)
[2017-06-22] MEDS: WARFARIN 2.5 MG TABLET PO SCH (18:03)
[2017-06-22] MEDS ORDERED: MAGNESIUM SULFATE 2 GRAM 50 ML IV SCH (21:26)
[2017-06-23 05:36] LABS: BASOPHILS # (AUTO) 0.1 10^3/uL (0.0-0.1); BASOPHILS % (AUTO) 1.1 %; EOSINOPHILS # (AUTO) 0.2 10^3/uL (0.0-0.7); EOSINOPHILS % (AUTO) 2.3 %; HCT - HEMATOCRIT 34.3 % (37.0-47.0); HGB - HEMOGLOBIN 11.7 g/dL (12.0-16.0); LYMPHOCYTES # (AUTO) 1.1 10^3/uL (1.5-3.5); LYMPHOCYTES % (AUTO) 14.4 %; MEAN CORPUSCULAR HEMOGLOBIN 34.9 pg (27.0-31.0); MEAN CORPUSCULAR HGB CONC 34.1 g/dL (32.0-36.0); MEAN CORPUSCULAR VOLUME 102.2 fL (81.0-99.0); MEAN PLATELET VOLUME 8.1 fL (7.9-10.8); MONOCYTES # (AUTO) 1.3 10^3/uL (0.0-1.0); MONOCYTES % (AUTO) 16.6 %; NEUTROPHILS # (AUTO) 4.9 10^3/uL (1.5-6.6); NEUTROPHILS % (AUTO) 65.6 %; RED BLOOD COUNT 3.36 10^6/uL (4.20-5.40); RED CELL DISTRIBUTION WIDTH 13.3 % (12.0-15.0); UNCORRECTED WHITE BLOOD COUNT 7.5 x10^3/uL; WHITE BLOOD COUNT 7.5 x10^3/uL (4.8-10.8)
[2017-06-23 05:48] LABS: BILIRUBIN,TOTAL 0.7 mg/dL (0.2-1.0); CALCIUM 8.5 mg/dL (8.5-10.3); CREATININE 1.4 mg/dL (0.4-1.0); MAGNESIUM 1.8 mg/dL (1.7-2.8); POTASSIUM 3.6 mmol/L (3.5-5.0); TOTAL PROTEIN 5.9 g/dL (6.7-8.2)
[2017-06-23] MEDS: PANTOPRAZOLE 40 MG TABLET PO SCH (06:22)
[2017-06-23] MEDS: SODIUM CHLORIDE FLUSH 0.9% 10 ML SYRINGE IVP SCH ×2 (06:22→09:32)
--- NOTE | 2017-06-23 09:31 | Discharge Plan ---
Discharge Plan Disposition: Home, Self Care Condition: Fair Prescriptions: Amox/Clav 875/125 [Augmentin] 1 each PO Q12H #10 tablet Furosemide [Lasix] 40 mg PO DAILY #30 tablet Diet: Low Sodium Activity Restrictions: Activity as Tolerated Shower Restrictions: No Driving Restrictions: No Weight Bearing: Full Weight Instruction Topics: Heart Failure Meds Control, Heart Failure, Heart Failure Warning Signs, Heart Failure Tracking Weight, Heart Failure Being Active, Heart Failure Coping, Heart Failure Diet Changes No Smoking: If you smoke, Please STOP! Call for help. Follow-up with: Maximiliano Mortensen MD [Primary Care Provider] -
[2017-06-23] MEDS: cefTRIAXone 2 GM in SODIUM CHLORIDE 0.9% MINIBAG 100 ML IV SCH (09:32)
[2017-06-23] MEDS: LISINOPRIL 20 MG TABLET PO SCH (09:38)
[2017-06-23] MEDS: METOPROLOL TARTRATE 50 MG TABLET PO SCH (09:38)
[2017-06-23] MEDS: POTASSIUM CHLORIDE 20 MEQ TABLET PO SCH (09:39)
[2017-06-23] MEDS: diltiaZEM CD 180 MG CAPSULE PO SCH (09:39)
[2017-06-23] MEDS: ANASTROZOLE 1 MG TABLET PO SCH (09:39)
[2017-06-23] MEDS: POLYETHYLENE GLYCOL 3350 17 GM PACKET PO SCH (09:52)
[2017-06-23] MEDS ORDERED: FUROSEMIDE 40 MG TABLET PO SCH (10:00)
[2017-06-23] MEDS: AZITHROMYCIN INJ 500 MG in SODIUM CHLORIDE 0.9% 250 ML IV SCH (10:53)
[2017-06-23 12:42] VITALS: BP 128/54
--- NOTE | 2017-07-11 21:54 | DISCHARGE SUMMARY ---
DATE OF ADMISSION: 06/18/2017 DATE OF DISCHARGE: 06/23/2017 PRIMARY CARE PHYSICIAN: Maximiliano Mortensen MD HOSPITAL COURSE: This is a 77-year-old white female with a history of hypertension, chronic atrial fi brillation on warfarin, who presented after 1 week of cough with clear sputum production and then rap idly progressive shortness of breath even at rest over the previous 24 hours. She desaturated in the emergency room, requiring a nonrebreather mask, and was started on diuresis. Her imaging studies show ed evidence of pulmonary edema and pneumonia. DISCHARGE DIAGNOSES 1. Congestive heart failure. The patient was placed on telemetry, her atrial fibrillation rate was in itially rapid but came under control, and she was very hypertensive on admission with a systolic bloo d pressure of 209, which responded to medications. She did not rule in for an [place] by troponins. She re quired IV diuretics for diuresis and nonrebreather mask, eventually changed to nasal cannula and then room air. An echo was done showing moderate to severe mitral regurgitation and tricuspid regurgitati on, preserved LVEF, and the CHF was felt to be multifactorial secondary to valvular disease, atrial f ibrillation, and uncontrolled hypertension. 2. Community-acquired pneumonia. She was placed on IV ceftriaxone and Zithromax, nebulizers p.r.n., a nd her supplemental oxygen. She completed 5 days of IV antibiotics and was discharged with an additio nal 5 days of p.o. antibiotics with Augmentin 875/12.5 mg p.o. b.i.d. 3. Hypertension. The patient did admit that she has never followed a salt restricted diet but was com pliant with her medications. With this blood pressure and rapid respiratory compromise, it was felt t hat she developed flash pulmonary edema secondary to marked hypertension. She was placed on all of he r prehospital blood pressure medications and also new Lasix, both for continued CHF treatment and blo od pressure control, and to help with pulmonary hypertension. 4. Pulmonary hypertension. The echo showed PA pressure of 65 mmHg, which is likely from valvular dise ase, and also possibly elevated it with her acute pneumonia. 5. Mitral regurgitation. It was felt to be from longstanding hypertension with annular dilatation, gi raphael the fact that she had severe left atrial enlargement on echo. Better blood pressure control would benefit the severity of her mitral regurgitation. 6. Atrial fibrillation. This is chronic. The rate was eventually controlled, and she is already on Co umadin for anticoagulation. 7. History of breast cancer. The patient was on recent chemotherapy, immunocompromised, and therefore was at a higher risk for the pneumonia. CONDITION AT DISCHARGE: Stable. MEDICATIONS New medications were: 1. Augmentin. 2. Lasix p.o. Continuation of all her prehospital medicines. Follow up with her primary care doctor within 1-2 weeks. JOB #: [id number] EXT JOB #:[id number]
== END 2017-06-23 12:58 | disposition home or self-care (01) | DRG 291 ==
LOC: ED 10:31 → OBS 13:19 → OBSVTOIN 14:22 → MS3 15:15 → MS2 06-19 16:12
PROVIDERS: ADMIT Internal Medicine; ATTEND Internal Medicine
DX: I11.0 Hypertensive heart disease with heart failure (principal); J96.01 Acute respiratory failure with hypoxia; I50.9 Heart failure, unspecified; J18.9 Pneumonia, unspecified organism; E87.1 Hypo-osmolality and hyponatremia; I50.33 Acute on chronic diastolic (congestive) heart failure; I48.2 Chronic atrial fibrillation; I08.1 Rheumatic disorders of both mitral and tricuspid valves; I27.2 Other secondary pulmonary hypertension; C50.919 Malignant neoplasm of unspecified site of unspecified female breast; E83.42 Hypomagnesemia; N30.20 Other chronic cystitis without hematuria; F41.9 Anxiety disorder, unspecified; Z79.811 Long term (current) use of aromatase inhibitors; Z92.3 Personal history of irradiation; Z90.721 Acquired absence of ovaries, unilateral; Z79.01 Long term (current) use of anticoagulants; Z87.891 Personal history of nicotine dependence; Z79.2 Long term (current) use of antibiotics; Z79.899 Other long term (current) drug therapy
CPT/HCPCS: 36415; 71020; 71275; 80048; 80053; 83036; 83690; 83735; 83880; 84100; 84484; 85025; 85610; 93005; 93306; 94640; 96374; 99283; 99284; 99285

== ENCOUNTER 2017-06-28 14:10 | Outpatient (CLI) | payer MEDICARE, OTHER ==
--- NOTE | 2017-06-28 18:42 | Mammography Report ---
DIGITAL DIAGNOSTIC BILATERAL MAMMOGRAM: 06/28/2017 CLINICAL INDICATION: A 77-year-old with history of right breast cancer status post lumpectomy and ra diation therapy, nulliparous patient, also history of benign right stereotactic biopsy and benign lef t breast biopsy. COMPARISON: 04/13/2016, 04/01/2016, 03/22/2016, 04/03/2013, 04/04/2012, 03/10/2011, 12/02/2009. TECHNIQUE: Bilateral CC and MLO views, right true lateral and spot magnification views. The breasts again demonstrate heterogeneously dense fibroglandular parenchyma bilaterally. Postopera tive and post-treatment changes in the right breast are stable, as is biopsy marker from benign right stereotactic biopsy. Coarse and punctate, typically benign calcifications are present. No suspicio us masses, clustered microcalcifications, or regions of architectural distortion are identified. IMPRESSION: PROBABLE BENIGN POSTOPERATIVE AND POST-TREATMENT CHANGES IN THE RIGHT BREAST. RECOMMENDATION: DIAGNOSTIC RIGHT MAMMOGRAM IN SIX MONTHS TO ASSURE STABILITY. BIRADS CATEGORY: 3, PROBABLE BENIGN FINDINGS. STANDARD QUALIFYING STATEMENTS 1. This examination was reviewed with the aid of Computed-Aided Detection (CAD). 2. A negative or benign imaging report should not delay biopsy if clinically suspicious findings are present. Consider surgical consultation if warranted. More than 5% of cancers are not identified b y imaging. 3. Dense breasts may obscure an underlying neoplasm. JOB #: [id number] EXT JOB #:
== END 2017-06-28 14:11 | disposition home or self-care (01) ==
LOC: DI 14:10
PROVIDERS: ATTEND Internal Medicine
DX: C50.911 Malignant neoplasm of unspecified site of right female breast (principal)
CPT/HCPCS: 77066

== ENCOUNTER 2017-07-26 08:36 | Outpatient (CLI) | payer MEDICARE, OTHER | END 2017-07-26 08:37 | disposition home or self-care (01) | LOC: LAB.F 08:36 | PROVIDERS: ATTEND Internal Medicine | DX: I48.91 Unspecified atrial fibrillation (principal); Z79.01 Long term (current) use of anticoagulants | CPT/HCPCS: 85610 ==

== ENCOUNTER 2017-08-18 07:40 | Outpatient (CLI) | payer MEDICARE, OTHER ==
[2017-08-18 11:57] LABS: CALCIUM 9.6 mg/dL (8.5-10.3); CREATININE 1.5 mg/dL (0.4-1.0); PHOSPHORUS 4.1 mg/dL (2.5-4.6); POTASSIUM 4.3 mmol/L (3.5-5.0)
== END 2017-08-18 07:41 | disposition home or self-care (01) ==
LOC: LAB.F 07:40
PROVIDERS: ATTEND Internal Medicine
DX: I48.91 Unspecified atrial fibrillation (principal); N18.3 Chronic kidney disease, stage 3 (moderate); I50.9 Heart failure, unspecified; R73.01 Impaired fasting glucose; C50.919 Malignant neoplasm of unspecified site of unspecified female breast; J18.9 Pneumonia, unspecified organism; I12.9 Hypertensive chronic kidney disease with stage 1 through stage 4 chronic kidney disease, or unspecified chronic kidney disease; Z79.01 Long term (current) use of anticoagulants
CPT/HCPCS: 36415; 80069; 85610

== ENCOUNTER 2017-09-21 12:43 | Outpatient (CLI) | payer MEDICARE, OTHER | END 2017-09-21 12:44 | disposition home or self-care (01) | LOC: LAB.F 12:43 | PROVIDERS: ATTEND Internal Medicine | DX: I48.91 Unspecified atrial fibrillation (principal); Z79.01 Long term (current) use of anticoagulants | CPT/HCPCS: 85610 ==

== ENCOUNTER 2017-11-23 12:44 | Outpatient (CLI) | payer MEDICARE, OTHER | END 2017-11-23 12:45 | disposition home or self-care (01) | LOC: LAB.F 12:44 | PROVIDERS: ATTEND Internal Medicine | DX: I48.91 Unspecified atrial fibrillation (principal); Z79.01 Long term (current) use of anticoagulants | CPT/HCPCS: 85610 ==

== ENCOUNTER 2017-12-08 12:32 | Outpatient (CLI) | payer MEDICARE, OTHER ==
[2017-12-08 17:54] LABS: CALCIUM 9.3 mg/dL (8.5-10.3); CREATININE 1.4 mg/dL (0.4-1.0)
== END 2017-12-08 12:33 | disposition home or self-care (01) ==
LOC: LAB.F 12:32
PROVIDERS: ATTEND Internal Medicine
DX: I48.91 Unspecified atrial fibrillation (principal); N18.3 Chronic kidney disease, stage 3 (moderate); R73.01 Impaired fasting glucose; C50.919 Malignant neoplasm of unspecified site of unspecified female breast; I12.9 Hypertensive chronic kidney disease with stage 1 through stage 4 chronic kidney disease, or unspecified chronic kidney disease; Z79.01 Long term (current) use of anticoagulants
CPT/HCPCS: 36415; 80048; 85610

== ENCOUNTER 2018-01-04 08:58 | Outpatient (CLI) | payer MEDICARE, OTHER ==
[2018-01-04 10:47] LABS: CALCIUM 9.4 mg/dL (8.5-10.3); CREATININE 1.4 mg/dL (0.4-1.0)
== END 2018-01-04 08:59 | disposition home or self-care (01) ==
LOC: LAB.F 08:58
PROVIDERS: ATTEND Internal Medicine
DX: I48.91 Unspecified atrial fibrillation (principal); Z79.01 Long term (current) use of anticoagulants; R73.01 Impaired fasting glucose; I12.9 Hypertensive chronic kidney disease with stage 1 through stage 4 chronic kidney disease, or unspecified chronic kidney disease; N18.3 Chronic kidney disease, stage 3 (moderate); C50.919 Malignant neoplasm of unspecified site of unspecified female breast
CPT/HCPCS: 36415; 80048; 85610

== ENCOUNTER 2018-01-17 08:38 | Outpatient (CLI) | payer MEDICARE, OTHER ==
--- NOTE | 2018-01-17 09:32 | Mammography Report ---
RIGHT DIAGNOSTIC MAMMOGRAM: 01/17/2018. COMPARISON: Mammogram 06/28/2017. INDICATION: Prior breast malignancy. TECHNIQUE: Five views of the right breast. FINDINGS: The breast parenchyma is heterogeneously dense which may limit the sensitivity of mammography. Postsurgical changes of the right breast are present with a scar marker in place. No dominant mass, architectural distortion, or concerning cluster of microcalcifications is seen. IMPRESSION: 1. BI-RADS CATEGORY 2 - BENIGN FINDINGS. 2. RECOMMEND FOLLOW UP MAMMOGRAPHY PER PROTOCOL, WHICH IS 6-12 MONTHS, AT PROVIDER DISCRETION. STANDARD QUALIFYING STATEMENTS: 1. This examination was reviewed with the aid of Computer-Aided Detection (CAD) . 2. A negative or benign imaging report should not delay biopsy if clinically suspicious findings are present. Consider surgical consultation if warranted. More than 5 % of cancers are not identified by imaging. 3. Dense breasts may obscure an underlying neoplasm. TD: 01/17/2018 09:32 JAQUELINE
== END 2018-01-17 08:39 | disposition home or self-care (01) ==
LOC: DI 08:38
PROVIDERS: ATTEND Internal Medicine
DX: C50.911 Malignant neoplasm of unspecified site of right female breast (principal)

== ENCOUNTER 2018-02-22 10:50 | Outpatient (CLI) | payer MEDICARE, OTHER ==
[2018-02-22 17:54] LABS: CALCIUM 9.6 mg/dL (8.5-10.3); CREATININE 1.4 mg/dL (0.4-1.0)
== END 2018-02-22 10:51 | disposition home or self-care (01) ==
LOC: LAB.F 10:50
PROVIDERS: ATTEND Internal Medicine
DX: I48.91 Unspecified atrial fibrillation (principal); Z79.01 Long term (current) use of anticoagulants; N18.3 Chronic kidney disease, stage 3 (moderate); E87.1 Hypo-osmolality and hyponatremia; R73.01 Impaired fasting glucose; I10 Essential (primary) hypertension; C50.919 Malignant neoplasm of unspecified site of unspecified female breast
CPT/HCPCS: 36415; 80048; 85610

== ENCOUNTER 2018-03-15 12:57 | Outpatient (CLI) | payer MEDICARE, OTHER ==
[2018-03-15 18:04] LABS: CALCIUM 9.5 mg/dL (8.5-10.3); CREATININE 1.5 mg/dL (0.4-1.0)
== END 2018-03-15 12:58 | disposition home or self-care (01) ==
LOC: LAB.F 12:57
PROVIDERS: ATTEND Internal Medicine
DX: I48.91 Unspecified atrial fibrillation (principal); N18.3 Chronic kidney disease, stage 3 (moderate); E87.1 Hypo-osmolality and hyponatremia; R73.01 Impaired fasting glucose; C50.919 Malignant neoplasm of unspecified site of unspecified female breast; I12.9 Hypertensive chronic kidney disease with stage 1 through stage 4 chronic kidney disease, or unspecified chronic kidney disease; Z79.01 Long term (current) use of anticoagulants
CPT/HCPCS: 36415; 80048; 83930; 83935; 84300; 85610

== ENCOUNTER 2018-04-12 07:11 | Outpatient (CLI) | payer MEDICARE, OTHER ==
[2018-04-12 11:14] LABS: CALCIUM 9.5 mg/dL (8.5-10.3); CREATININE 1.3 mg/dL (0.4-1.0)
[2018-04-12 11:48] LABS: CREATININE,URINE 54.8 mg/dL; MICROALBUMIN,URINE 162.1 mg/dL (0-300.0)
== END 2018-04-12 07:12 | disposition home or self-care (01) ==
LOC: LAB.F 07:11
PROVIDERS: ATTEND Internal Medicine
DX: I48.91 Unspecified atrial fibrillation (principal); N18.3 Chronic kidney disease, stage 3 (moderate); E87.1 Hypo-osmolality and hyponatremia; R73.01 Impaired fasting glucose; C50.919 Malignant neoplasm of unspecified site of unspecified female breast; I12.9 Hypertensive chronic kidney disease with stage 1 through stage 4 chronic kidney disease, or unspecified chronic kidney disease; Z79.01 Long term (current) use of anticoagulants
CPT/HCPCS: 36415; 80048; 82043; 82570; 83930; 83935; 84300; 85610

== ENCOUNTER 2018-04-19 08:05 | Outpatient (CLI) | payer MEDICARE, OTHER ==
[2018-04-19 11:42] LABS: CALCIUM 9.5 mg/dL (8.5-10.3); CREATININE 1.4 mg/dL (0.4-1.0)
== END 2018-04-19 08:06 | disposition home or self-care (01) ==
LOC: LAB.F 08:05
PROVIDERS: ATTEND Internal Medicine
DX: I48.91 Unspecified atrial fibrillation (principal); N18.3 Chronic kidney disease, stage 3 (moderate); E87.1 Hypo-osmolality and hyponatremia; R73.01 Impaired fasting glucose; C50.919 Malignant neoplasm of unspecified site of unspecified female breast; I12.9 Hypertensive chronic kidney disease with stage 1 through stage 4 chronic kidney disease, or unspecified chronic kidney disease; Z79.01 Long term (current) use of anticoagulants
CPT/HCPCS: 36415; 80048; 85610

== ENCOUNTER 2018-05-31 09:53 | Outpatient (CLI) | payer MEDICARE, OTHER ==
[2018-05-31 18:14] LABS: CALCIUM 9.5 mg/dL (8.5-10.3); CREATININE 1.4 mg/dL (0.4-1.0)
== END 2018-05-31 09:54 | disposition home or self-care (01) ==
LOC: LAB.F 09:53
PROVIDERS: ATTEND Internal Medicine
DX: I48.91 Unspecified atrial fibrillation (principal); Z79.01 Long term (current) use of anticoagulants; I12.9 Hypertensive chronic kidney disease with stage 1 through stage 4 chronic kidney disease, or unspecified chronic kidney disease; N18.3 Chronic kidney disease, stage 3 (moderate); E87.1 Hypo-osmolality and hyponatremia; R73.01 Impaired fasting glucose; C50.919 Malignant neoplasm of unspecified site of unspecified female breast
CPT/HCPCS: 36415; 80048; 85610

== ENCOUNTER 2018-06-28 09:47 | Outpatient (CLI) | payer MEDICARE, OTHER | END 2018-06-28 09:48 | disposition home or self-care (01) | LOC: LAB.F 09:47 | PROVIDERS: ATTEND Internal Medicine | DX: I48.91 Unspecified atrial fibrillation (principal); Z79.01 Long term (current) use of anticoagulants | CPT/HCPCS: 85610 ==

== ENCOUNTER 2018-08-09 08:49 | Outpatient (CLI) | payer MEDICARE, OTHER | END 2018-08-09 08:50 | disposition home or self-care (01) | LOC: LAB.F 08:49 | PROVIDERS: ATTEND Internal Medicine | DX: I48.91 Unspecified atrial fibrillation (principal); Z79.01 Long term (current) use of anticoagulants | CPT/HCPCS: 85610 ==

== ENCOUNTER 2018-10-12 09:54 | Outpatient (CLI) | payer MEDICARE, OTHER | END 2018-10-12 09:55 | disposition home or self-care (01) | LOC: LAB.F 09:54 | PROVIDERS: ATTEND Internal Medicine | DX: I48.91 Unspecified atrial fibrillation (principal); Z79.01 Long term (current) use of anticoagulants | CPT/HCPCS: 85610 ==

== ENCOUNTER 2018-10-20 07:57 | Outpatient (CLI) | payer MEDICARE, OTHER | END 2018-10-20 07:58 | disposition home or self-care (01) | LOC: LAB.F 07:57 | PROVIDERS: ATTEND Internal Medicine | DX: I48.91 Unspecified atrial fibrillation (principal); Z79.01 Long term (current) use of anticoagulants | CPT/HCPCS: 85610 ==

== ENCOUNTER 2018-10-25 07:09 | Outpatient (CLI) | payer MEDICARE, OTHER | END 2018-10-25 07:10 | disposition home or self-care (01) | LOC: LAB.F 07:09 | PROVIDERS: ATTEND Internal Medicine | DX: I48.91 Unspecified atrial fibrillation (principal); Z79.01 Long term (current) use of anticoagulants | CPT/HCPCS: 85610 ==

== ENCOUNTER 2018-11-22 07:18 | Outpatient (CLI) | payer MEDICARE, OTHER | END 2018-11-22 07:19 | disposition home or self-care (01) | LOC: LAB.F 07:18 | PROVIDERS: ATTEND Internal Medicine | DX: I48.91 Unspecified atrial fibrillation (principal); Z79.01 Long term (current) use of anticoagulants | CPT/HCPCS: 85610 ==

== ENCOUNTER 2019-01-10 13:03 | Outpatient (CLI) | payer MEDICARE, OTHER | END 2019-01-10 13:04 | disposition home or self-care (01) | LOC: LAB.F 13:03 | PROVIDERS: ATTEND Internal Medicine | DX: I48.91 Unspecified atrial fibrillation (principal); Z79.01 Long term (current) use of anticoagulants | CPT/HCPCS: 85610 ==

== ENCOUNTER 2019-01-24 12:46 | Outpatient (CLI) | payer MEDICARE, OTHER | END 2019-01-24 12:47 | disposition home or self-care (01) | LOC: LAB.F 12:46 | PROVIDERS: ATTEND Internal Medicine | DX: I48.91 Unspecified atrial fibrillation (principal); Z79.01 Long term (current) use of anticoagulants | CPT/HCPCS: 85610 ==

== ENCOUNTER 2019-02-07 12:33 | Outpatient (CLI) | payer MEDICARE, OTHER ==
[2019-02-07 18:36] LABS: CALCIUM 9.6 mg/dL (8.5-10.3); CREATININE 1.6 mg/dL (0.4-1.0)
== END 2019-02-07 12:34 | disposition home or self-care (01) ==
LOC: LAB.F 12:33
PROVIDERS: ATTEND Internal Medicine
DX: I48.91 Unspecified atrial fibrillation (principal); Z79.01 Long term (current) use of anticoagulants; N18.3 Chronic kidney disease, stage 3 (moderate); R73.01 Impaired fasting glucose; C50.919 Malignant neoplasm of unspecified site of unspecified female breast; I12.9 Hypertensive chronic kidney disease with stage 1 through stage 4 chronic kidney disease, or unspecified chronic kidney disease; E87.1 Hypo-osmolality and hyponatremia
CPT/HCPCS: 36415; 80048; 85610

== ENCOUNTER 2019-02-21 10:53 | Outpatient (CLI) | payer MEDICARE, OTHER ==
--- NOTE | 2019-02-21 12:09 | Mammography Report ---
Reason: RT BREAST CA Procedure Date: 02/21/2019 Accession Number: [id number] / [id number] Procedure: NOELLE - Diagnostic Dig Bilat CPT Code: FULL RESULT: EXAM: Diagnostic Dig Bilat DATE: 02/21/2019 11:27 AM CLINICAL HISTORY: Annual mammogram. History of right breast cancer in 2016. TECHNIQUE: (B) - Bilateral CC and MLO views were obtained. COMPARISON: 04/01/2016, 06/28/2017 PARENCHYMAL PATTERN: (A) - The breasts demonstrate scattered fibroglandular densities bilaterally. FINDINGS: Bilateral coarse benign and arterial calcifications present. There are no suspicious masses, amorphic microcalcifications, or areas of distortion. IMPRESSION: Benign findings. BI-RADS category 2. RECOMMENDATION: (ANNUAL) - Recommend routine annual screening mammography. BI-RADS CATEGORY: (2) - Benign Findings. STANDARD QUALIFYING STATEMENTS: 1. This examination was not reviewed with the aid of Computer-Aided Detection (CAD). 2. A negative or benign imaging report should not preclude biopsy if clinically suspicious findings are present. 3. Dense breasts may obscure an underlying neoplasm. 4. This examination was reviewed without the aid of 3D breast imaging (tomosynthesis).
== END 2019-02-21 10:54 | disposition home or self-care (01) ==
LOC: DI 10:53
PROVIDERS: ATTEND Internal Medicine
DX: C50.411 Malignant neoplasm of upper-outer quadrant of right female breast (principal)
CPT/HCPCS: 77066

== ENCOUNTER 2019-02-28 13:04 | Outpatient (CLI) | payer MEDICARE, OTHER | END 2019-02-28 13:05 | disposition home or self-care (01) | LOC: LAB.F 13:04 | PROVIDERS: ATTEND Internal Medicine | DX: I48.91 Unspecified atrial fibrillation (principal); Z79.01 Long term (current) use of anticoagulants | CPT/HCPCS: 85610 ==

== ENCOUNTER 2019-04-16 08:49 | Outpatient (CLI) | payer MEDICARE, OTHER | END 2019-04-16 08:50 | disposition home or self-care (01) | LOC: LAB.F 08:49 | PROVIDERS: ATTEND Internal Medicine | DX: I48.91 Unspecified atrial fibrillation (principal); Z79.01 Long term (current) use of anticoagulants | CPT/HCPCS: 85610 ==

== ENCOUNTER 2019-04-25 12:44 | Outpatient (CLI) | payer MEDICARE, OTHER | END 2019-04-25 12:45 | disposition home or self-care (01) | LOC: LAB.F 12:44 | PROVIDERS: ATTEND Internal Medicine | DX: I48.91 Unspecified atrial fibrillation (principal); Z79.01 Long term (current) use of anticoagulants | CPT/HCPCS: 85610 ==

== ENCOUNTER 2019-05-14 18:42 | Inpatient (IN) | payer MEDICARE, OTHER ==
[2019-05-14 19:06] LABS: BASOPHILS % (AUTO) 0.8 %; EOSINOPHILS % (AUTO) 16.9 %; HGB - HEMOGLOBIN 11.6 g/dL (12.0-16.0); LYMPHOCYTES % (AUTO) 25.1 %; MEAN CORPUSCULAR HEMOGLOBIN 33.3 pg (27.0-31.0); MEAN CORPUSCULAR HGB CONC 33.4 g/dL (32.0-36.0); MEAN CORPUSCULAR VOLUME 99.7 fL (81.0-99.0); MEAN PLATELET VOLUME 9.4 fL (7.9-10.8); MONOCYTES % (AUTO) 7.9 %; NEUTROPHILS % (AUTO) 48.9 %; PLT - PLATELET COUNT 240 10^3/uL (130-450); RED BLOOD COUNT 3.48 10^6/uL (4.20-5.40); RED CELL DISTRIBUTION WIDTH 12.9 % (12.0-15.0)
[2019-05-14 19:12] LABS: ABNORMAL LYMPHS % (MANUAL) 0 %
[2019-05-14 19:18] LABS: ALBUMIN 4.4 g/dL (3.2-5.5); ALBUMIN/GLOBULIN RATIO 1.4 (1.0-2.2); BILIRUBIN,TOTAL 1.1 mg/dL (0.2-1.0); CALCIUM 9.7 mg/dL (8.5-10.3); CREATININE 1.5 mg/dL (0.4-1.0); PT - PROTHROMBIN TIME 33.3 secs (9.9-12.6); TOTAL PROTEIN 7.6 g/dL (6.7-8.2)
[2019-05-14] MEDS ORDERED: NITROGLYCERIN 2% PASTE TOP STA (19:23)
--- NOTE | 2019-05-14 19:25 | ED Physician Documentation ---
PD HPI CHEST PAIN - Stated complaint Stated Complaint: SOA - Chief complaint Chief Complaint: Cardiac - History obtained from History obtained from: Patient - History of Present Illness Timing - onset: Other (79-year-old woman with history of atrial fibrillation on warfarin presents with progressive exertional dyspnea of a couple weeks duration and orthopnea as well. Over the last 2 days she is had on and off nonexertional chest tightness. She feels weak. She says she would have trouble walking down the roper with the aid of her walker though. She denies cough.) Review of Systems Ten Systems: 10 systems reviewed and negative Constitutional: denies: Fever, Chills Nose: denies: Rhinorrhea / runny nose, Congestion, Epistaxis Respiratory: denies: Cough, Hemoptysis, Wheezing GI: reports: Constipation. 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, Other HEENT: Tonsil/Adenoidectomy - Present Medications Home Medications: Ambulatory Orders Medication Instructions Recorded Confirmed Metoprolol Tartrate 100 mg PO BID 06/12/14 01/25/18 Nitrofurantoin [Macrobid] 100 mg ORAL DAILY PRN 06/12/14 01/25/18 [id number] CD [Cardizem Cd] 180 mg PO DAILY 06/12/14 01/25/18 Anastrozole [Arimidex] 1 mg PO DAILY 10/01/16 01/25/18 Lisinopril 40 mg PO DAILY 06/18/17 01/25/18 Warfarin Sodium [Jantoven] 2.5 mg PO SUTUWETHSA@1400 06/18/17 01/25/18 Warfarin Sodium [Jantoven] 5 mg PO MOFR 06/18/17 01/25/18 Warfarin Sodium [Jantoven] 2.5 mg PO SUTUWETHSA 06/21/17 01/25/18 Warfarin [Coumadin] 2.5 mg PO SuTuWeThSa@1800 tablet 06/23/17 01/25/18 Warfarin [Coumadin] 5 mg PO MoFr@1800 tablet 06/23/17 01/25/18 - Allergies Allergies/Adverse Reactions: Allergies Allergy/AdvReac Type Severity Reaction Status Date / Time Sulfa (Sulfonamide Allergy Rash Verified 06/18/17 10:39 Antibiotics) - Social History Does the pt smoke?: No Smoking Status: Never smoker Does the pt drink ETOH?: No Does the pt have substance abuse?: No - Family History Family history: reports: Non contributory - Immunizations Immunizations are current?: No Immunizations: TDAP >10years/unknown - POLST Patient has POLST: No POLST Status: Full Code PD ED PE NORMAL - Vitals Vital signs reviewed: Yes - General General: Alert and oriented X 3, No acute distress - HEENT HEENT: PERRL, EOMI - Neck Neck: Supple, no meningeal sign, No bony TTP - Cardiac Cardiac: Other (Irregularly irregular with loud systolic decrescendo murmur) - Respiratory Respiratory: Other (Diminished at both bases) - Abdomen Abdomen: Soft, Non tender - Derm Derm: Normal color, Warm and dry - Extremities Extremities: Other (Trace pitting pedal edema, symmetric) - Neuro Neuro: Alert and oriented X 3, Normal speech Results - Vitals Vitals: Vital Signs - 24 hr 05/14/19 05/14/19 05/14/19 18:48 19:19 19:53 Temperature 36.7 C Heart Rate 54 L 56 L 52 L Respiratory 22 22 18 Rate Blood Pressure 190/75 H 200/72 H 191/78 H O2 Saturation 92 94 97 Oxygen O2 Source Room air - EKG (time done) 1852 Rate: Rate (enter#) (52) Rhythm: Atrial fibrillation Mena: Normal Intervals: Normal [place] Ischemia: Non specific changes Compare to prior EKG: Unchanged from prior EKG (No ST-T changes compared to last EKG on file dated 06/15/2016) Computer interpretation: Agree with computer - Labs Labs: Laboratory Tests 05/14/19 05/14/19 05/14/19 18:55 18:55 18:55 WBC 8.0 RBC 3.48 L Hgb 11.6 L Hct 34.7 L MCV 99.7 H MCH 33.3 H MCHC 33.4 RDW 12.9 Plt Count 240 MPV 9.4 Neut # (Auto) Not Reportable Lymph # (Auto) Not Reportable [place] # (Auto) Not Reportable Eos # (Auto) Not Reportable Baso # (Auto) Not Reportable Absolute Nucleated RBC Not Reportable Total Counted 100 Band Neuts % (Manual) 1 Abnorm Lymph % (Manual) 0 Nucleated RBC % Not Reportable Neutrophils # (Manual) 5.4 Lymphocytes # (Manual) 2.1 Monocytes # (Manual) 0.6 Eosinophils # (Manual) 0.0 Basophils # (Manual) 0.0 Differential Comment MANUAL DIFFERENTIAL WBC Morphology NORMAL APPEARANCE Platelet Estimate NORMAL (130-450,000) Platelet Morphology NORMAL APPEARANCE RBC Morph Micro Appear NORMAL APPEARANCE PT INR Sodium 128 L Potassium 4.5 Chloride 90 L Carbon Dioxide 26 Anion Gap 12.0 BUN 22 H Creatinine 1.5 H Estimated GFR (MDRD) 34 L Glucose 117 H Calcium 9.7 Total Bilirubin 1.1 H AST 22 ALT 12 Alkaline Phosphatase 96 Troponin I 0.04 B-Natriuretic Peptide Total Protein 7.6 Albumin 4.4 Globulin 3.2 Albumin/Globulin Ratio 1.4 Lipase 43 Ethyl Alcohol 05/14/19 05/14/19 05/14/19 18:55 18:55 18:55 WBC RBC Hgb Hct MCV MCH MCHC RDW Plt Count MPV Neut # (Auto) Lymph # (Auto) [place] # (Auto) Eos # (Auto) Baso # (Auto) Absolute Nucleated RBC Total Counted Band Neuts % (Manual) Abnorm Lymph % (Manual) Nucleated RBC % Neutrophils # (Manual) Lymphocytes # (Manual) Monocytes # (Manual) Eosinophils # (Manual) Basophils # (Manual) Differential Comment WBC Morphology Platelet Estimate Platelet Morphology RBC Morph Micro Appear PT 33.3 H INR 3.0 H Sodium Potassium Chloride Carbon Dioxide Anion Gap BUN Creatinine Estimated GFR (MDRD) Glucose Calcium Total Bilirubin AST ALT Alkaline Phosphatase Troponin I B-Natriuretic Peptide 3644 H Total Protein Albumin Globulin Albumin/Globulin Ratio Lipase Ethyl Alcohol < 5.0 - Rads (name of study) 2v chest Radiology: EMP read contemporaneously (L>R pleural effusions) PD MEDICAL DECISION MAKING - ED course Complexity details: reviewed old records (echo previous severe MR) ED course: 79-year-old woman with history of CHF and atrial fibrillation presents with symptoms of progressive CHF over the last few weeks and now some chest tightness. Her EKG is nonischemic and her troponin is negative. Her BNP is elevated and she has bilateral pleural effusions. She has stable renal insufficiency. She is quite weak. She did not think she would be able to manage at home with diuresis. She was given Lasix IV and Nitropaste here. Spoke with Dr. Boyle for admission at 8:50 PM. Departure - Departure Disposition: [address] [facility] DC/Xfer Clinical Impression: Atypical chest pain, Anticoagulation monitoring, INR range 2-3 Acute exacerbation of CHF (congestive heart failure) Qualifiers: Heart failure type: unspecified Qualified Code(s): I50.9 - Heart failure, unspecified Atrial fibrillation Qualifiers: Atrial fibrillation type: chronic Qualified Code(s): I48.2 - Chronic atrial fibrillation Condition: Serious
[2019-05-14 19:55] LABS: BAND NEUTROPHILS % (MANUAL) 1 %; LYMPHOCYTES # (MANUAL) 2.1 10^3/uL (1.5-3.5); LYMPHOCYTES % (MANUAL) 26 %; MONOCYTES # (MANUAL) 0.6 10^3/uL (0.0-1.0); NEUTROPHILS # (MANUAL) 5.4 10^3/uL (1.5-6.6); NEUTROPHILS % (MANUAL) 66 %
[2019-05-14 19:56] LABS: DIFFERENTIAL COMMENT MANUAL DIFFERENTIAL; PLATELET ESTIMATE, MANUAL NORMAL (130-450,000) (NORMAL); PLATELET MORPHOLOGY NORMAL APPEARANCE (NORMAL); RBC MORPHOLOGY (MULTIPLE) NORMAL APPEARANCE (NORMAL)
--- NOTE | 2019-05-14 20:08 | XRAY Report ---
Reason: SOB/CP Procedure Date: 05/14/2019 Accession Number: [id number] / [id number] Procedure: XR - Chest 2 View X-Ray CPT Code: 44043 FULL RESULT: EXAM: CHEST RADIOGRAPHY EXAM DATE: 05/14/2019 07:38 PM. CLINICAL HISTORY: SOB/CP. COMPARISON: CHEST 2 VIEW PA/LAT 06/18/2017 11:21 AM. TECHNIQUE: 2 views. FINDINGS: Lungs/Pleura: Moderate to large left pleural effusion, increase his previous study, with underlying atelectasis versus infiltrate. Small right pleural effusion best seen on lateral view. Otherwise clear. No pneumothorax. Mediastinum: Mild cardiomegaly. Upper lobe vessels not distended. Other: None. IMPRESSION: Pleural effusions, left more than right. RADIA
[2019-05-14] MEDS ORDERED: FUROSEMIDE 40 MG/4 ML VIAL IVP STA (20:41)
[2019-05-14] MEDS ORDERED: ONDANSETRON 4 MG/2 ML VIAL IVP PRN (21:06)
[2019-05-14] MEDS ORDERED: hydrALAZINE INJ 20 MG/ML VIAL IVP PRN (22:29)
[2019-05-14] MEDS ORDERED: traZODone 50 MG TABLET PO PRN (23:00)
[2019-05-14] MEDS: SODIUM CHLORIDE FLUSH 0.9% 10 ML SYRINGE IVP SCH (23:43)
--- NOTE | 2019-05-15 00:37 | HISTORY & PHYSICAL EXAMINATION ---
Chief Complaint - Chief Complaint Chief Complaint: substernal chest pressure History of Present Illness - Admitted From Admitted From:: [facility] ED - History Obtained From Records Reviewed: yes History obtained from: patient - History of Present Illness HPI Comment/Other: Patient is a 79 y/o female who presented to the ED with non-radiating sub- sternal chest pressure which started on 05/10/19 while she was sleeping. She reports some dyspnea and a generalized sense of not feeling well. She denies abdominal pain. She was nauseous and had some chills. She has +1 lower extremity edema around her ankles. The last occurence of similar symptoms was 06/18/17. At the time she was admitted for 6 days. During that admission she had her most recent echocardiogram. In the ED she was found to have a BNP of 3644. At bedside she is on room air, speaking in complete sentences. She is being admitted for further work up. History - Past Medical History Cardiovascular: reports: Hypertension, High cholesterol, Atrial fibrillation, Arrhythmia Respiratory: reports: Pneumonia, Shortness of breath Neuro: reports: TIA Endocrine/Autoimmune: reports: None GI: reports: None : reports: Chronic bladder infection HEENT: reports: Chronic vision loss Psych: reports: Anxiety Musculoskeletal: reports: None Derm: reports: None MRSA Hx?: No Other Past Medical History: right breast cancer treated with radiation - Past Surgical History General: reports: Appendectomy, Colonoscopy, Other Ortho: reports: Other /[employer]: reports: Hysterectomy, Other HEENT: reports: Tonsil/Adenoidectomy - Family & Social History Family History Comment/Other: She was adopted Living arrangement: At home Living Situation: With spouse/s.o. Social History Notes: Patient was born and raised in the [facility]. 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 The family move to [place] and she spent 35 years in [place]. They then moved to [place] where they only live for 2 years before moving back to the [facility]. Her and her have now been living in [facility] for the last 10 years. The patient does not have any biological children. The patient was formerly a smoker she smoked less than a quarter pack a day for about 20 years she quit over 20 years ago. Her and her have been for 43 years. She does drink alcohol socially and denies any illicit drug use. - Substance History Use: Uses substance without health or social issues: NONE - POLST Patient has POLST: No POLST Status: Full Code Meds/Allgy - Home Medications Home Medications: Ambulatory Orders Medication Instructions Recorded Confirmed Metoprolol Tartrate 100 mg PO BID 06/12/14 01/25/18 Nitrofurantoin [Macrobid] 100 mg ORAL DAILY PRN 06/12/14 01/25/18 [id number] CD [Cardizem Cd] 180 mg PO DAILY 06/12/14 01/25/18 Anastrozole [Arimidex] 1 mg PO DAILY 10/01/16 01/25/18 Lisinopril 40 mg PO DAILY 06/18/17 01/25/18 Warfarin Sodium [Jantoven] 2.5 mg PO SUTUWETHSA@1400 06/18/17 01/25/18 Warfarin Sodium [Jantoven] 5 mg PO MOFR 06/18/17 01/25/18 Warfarin Sodium [Jantoven] 2.5 mg PO SUTUWETHSA 06/21/17 01/25/18 Warfarin [Coumadin] 2.5 mg PO SuTuWeThSa@1800 tablet 06/23/17 01/25/18 Warfarin [Coumadin] 5 mg PO MoFr@1800 tablet 06/23/17 01/25/18 - Allergies Allergies/Adverse Reactions: Allergies Allergy/AdvReac Type Severity Reaction Status Date / Time Sulfa (Sulfonamide Allergy Rash Verified 06/18/17 10:39 Antibiotics) Review of Systems - Constitutional Constitutional: reports: Chills. denies: Fatigue, Fever, Weakness - Eyes Eyes: reports: Vision loss. denies: Blurred vision, Dipolpia - Ears, Nose & Throat Ears, Nose & Throat: denies: Vertigo, Nasal pain, Nasal discharge, Sore throat, Hoarseness - Cardiovascular Cariovascular: reports: Chest pain, Edema, Lightheadedness, Exertional dyspnea. denies: Syncope - Respiratory Respiratory: reports: SOB at rest. denies: Cough, Sputum production, Wheezing - Gastrointestinal Gastrointestinal: reports: Nausea. denies: Abdominal pain, Change in bowel habits, Rectal bleeding, Vomiting, Coffee grounds emesis, Reflux/heartburn - Genitourinary Genitourinary: denies: Dysuria, Frequency, Urgency, Hematuria, Incontinence, Flank pain - Musculoskeletal Musculoskeletal: denies: Muscle pain, Back pain - Integumentary Integumentary: denies: Rash, Dryness - Neurological Neurological: denies: General weakness, Focal weakness, Headache, Numbness, Memory problems, Abnormal gait - Psychiatric Psychiatric: denies: Depression, Anxiety - Endocrine Endocrine: denies: Polyuria, Polydypsia - Hematologic/Lymphatic Hematologic/Lymphatic: denies: Anemia, Bruising, Petechiae Prior Level of Functionality: Lives at home with spouse of 45 years. She is independent of activities of daily living. She cooks and does her laundry. It is a one level home. She get around using a walker with 4 wheels. Exam - Vital Signs Vital Signs: Vital Signs x48h Temp Pulse Pulse Resp BP BP Pulse Ox 05/14/19 23:19 175/65 H 05/14/19 23:08 62 165/61 H 05/14/19 23:03 59 L 175/59 H 05/14/19 22:58 54 L 185/62 H 05/14/19 22:49 189/59 H 05/14/19 22:27 36.5 C 55 L 18 171/73 H 98 05/14/19 19:53 52 L 18 191/78 H 97 05/14/19 19:19 56 L 22 200/72 H 94 05/14/19 18:48 36.7 C 54 L 22 190/75 H 92 - Physical Exam General Appearance: positive: No acute distress, Alert. negative: Lethargic Eyes Bilateral: positive: PERRL, EOMI. negative: Conjunctivae nml, No scleral icterus ENT: positive: ENT inspection nml, No signs of dehydration Neck: positive: Nml inspection, Trachea midline. negative: No JVD Respiratory: positive: Chest non-tender, Breath sounds nml. negative: Wheezes, Rales, Rhonchi Cardiovascular: positive: Irregularly irregular, Bradycardia, Systolic murmur Abdomen: positive: Non-tender, No organomegaly, Nml bowel sounds, No distention. negative: Guarding, Rebound Back: positive: Nml inspection Skin: positive: Color nml, Warm, Dry. negative: Diaphoresis, Pallor Extremities: positive: Pedal edema Neurologic/Psychiatric: positive: Oriented x3 Conclusion/Plan - Problem List (1) Acute exacerbation of CHF (congestive heart failure) Conclusion/Plan: Patient given 80 mg IV lasix in the ED Will continue lasix at 20mg IV bid Daily weights. Sodium and fluid restriction Continue metoprolol tartrate 100mg bid If patient in the hospital for > 2 days, will get 2D echo If not, it may be done outpatient. Qualifiers: Heart failure type: unspecified Qualified Code(s): I50.9 - Heart failure, unspecified (2) Chest pressure Conclusion/Plan: Nitro-paste on chest Trend troponin 2D echo (3) Atrial fibrillation Conclusion/Plan: with slow ventricular rhythm. On metoprolol and diltiazem. On coumadin with INR of 3 Qualifiers: Atrial fibrillation type: chronic Qualified Code(s): I48.2 - Chronic atrial fibrillation (4) Hypertension Conclusion/Plan: On diltiazem and metoprolol Nitro-paste placed on chest Hydralazine ordered prn Qualifiers: Hypertension type: essential hypertension Qualified Code(s): I10 - Essential (primary) hypertension (5) History of breast cancer Conclusion/Plan: On anastrozole (6) Chronic kidney disease Conclusion/Plan: At baseline. Cr 1.5 Qualifiers: Chronic kidney disease stage: stage 3 (moderate) Qualified Code(s): N18.3 - Chronic kidney disease, stage 3 (moderate) - Lab Results Fish Bones: 05/14/19 18:55 05/14/19 18:55 Core Measures - Anticipated LOS I expect patient to be DC'd or transferred within 96 hours.: Yes - DVT/VTE - Prophylaxis VTE/DVT Device ordered at admit?: Yes
[2019-05-15] MEDS: ACETAMINOPHEN 325 MG TABLET PO PRN ×2 (03:56→09:43)
[2019-05-15] MEDS ORDERED: FUROSEMIDE 40 MG/4 ML VIAL IVP SCH ×2 (06:00)
[2019-05-15] MEDS: PANTOPRAZOLE 40 MG VIAL IVP SCH (07:03)
[2019-05-15] MEDS: FUROSEMIDE 20 MG/2 ML VIAL IVP SCH ×2 (07:04→14:24)
[2019-05-15] MEDS: SODIUM CHLORIDE FLUSH 0.9% 10 ML SYRINGE IVP PRN (07:04)
[2019-05-15] MEDS ORDERED: METOPROLOL TARTRATE 50 MG TABLET PO SCH (09:00)
[2019-05-15 09:08] LABS: BASOPHILS # (AUTO) 0.1 10^3/uL (0.0-0.1); BASOPHILS % (AUTO) 0.9 %; EOSINOPHILS % (AUTO) 0.5 %; LYMPHOCYTES # (AUTO) 1.5 10^3/uL (1.5-3.5); MEAN CORPUSCULAR HEMOGLOBIN 33.3 pg (27.0-31.0); MEAN CORPUSCULAR HGB CONC 33.4 g/dL (32.0-36.0); MEAN CORPUSCULAR VOLUME 99.7 fL (81.0-99.0); MEAN PLATELET VOLUME 9.7 fL (7.9-10.8); MONOCYTES % (AUTO) 12.7 %; NEUTROPHILS % (AUTO) 65.5 %; PLT - PLATELET COUNT 221 10^3/uL (130-450); RED CELL DISTRIBUTION WIDTH 12.7 % (12.0-15.0); WHITE BLOOD COUNT 7.7 x10^3/uL (4.8-10.8)
[2019-05-15] MEDS: diltiaZEM CD 180 MG CAPSULE PO SCH (09:13)
[2019-05-15] MEDS: LISINOPRIL 20 MG TABLET PO SCH (09:13)
[2019-05-15] MEDS: ANASTROZOLE 1 MG TABLET PO SCH (09:13)
[2019-05-15] MEDS: SODIUM CHLORIDE FLUSH 0.9% 10 ML SYRINGE IVP SCH ×3 (09:14→23:54)
[2019-05-15] MEDS: POLYETHYLENE GLYCOL 3350 17 GM PACKET PO SCH ×2 (09:14→09:16)
[2019-05-15 09:15] LABS: CALCIUM 9.4 mg/dL (8.5-10.3); CREATININE 1.4 mg/dL (0.4-1.0)
--- NOTE | 2019-05-15 11:55 | PROVIDER PROGRESS NOTE ---
Subjective - Prog Note Date Prog Note Date: 05/15/19 Prog Note Time: 12:10 - Subjective Subjective: On the one hand she is improved with chest tightness and shortness of breath. But on the other hand she describes a phenomena where the room seems to "puls ate". The room seems to close in on her and then expand, closing on her than expand. Much like a respiration of your chest wall. She says this never happened her before. She is not dizzy. The room is not spinning. There is no blurred vision, paresthesias, focal motor deficits. She is reluctant to get out of bed. She cannot really say why. She just does not feel well and does not feel like it. Not because of shortness of breath. Current Medications - Current Medications Current Medications: Active Medications Acetaminophen (Tylenol) 650 mg PO Q6HR PRN PRN Reason: Pain or Fever > 38C (100.4F) Last Admin: 05/15/19 09:43 Dose: 650 mg Anastrozole (Anastrozole) 1 mg PO DAILY [facility] Last Admin: 05/15/19 09:13 Dose: 1 mg Diltiazem HCl (Cardizem Cd) 180 mg PO DAILY [facility] Last Admin: 05/15/19 09:13 Dose: 180 mg Furosemide (Lasix Inj 20mg Vial) 20 mg IVP BIDDIURETIC [facility] Last Admin: 05/15/19 07:04 Dose: 20 mg Hydralazine HCl (Apresoline Inj) 10 mg IVP Q4H PRN PRN Reason: PER PHYSICIAN ORDER Last Admin: 05/14/19 22:49 Dose: 10 mg Lisinopril (Zestril) 40 mg PO DAILY [facility] Last Admin: 05/15/19 09:13 Dose: 40 mg Metoprolol Tartrate (Lopressor) 100 mg PO BID [facility] Last Admin: 05/15/19 09:14 Dose: 100 mg Ondansetron HCl (Zofran Inj) 4 mg IVP Q6HR PRN PRN Reason: Nausea / Vomiting Pantoprazole Sodium (Protonix) 40 mg IVP QDAC [facility] Last Admin: 05/15/19 07:03 Dose: 40 mg Polyethylene Glycol (Miralax) 17 gm PO DAILY [facility] Last Admin: 05/15/19 09:16 Dose: Not Given Sodium Chloride (Normal Saline Flush 0.9%) 10 ml IVP PRN PRN PRN Reason: NEEDED PER PROVIDER ORDERS Last Admin: 05/15/19 07:04 Dose: 10 ml Sodium Chloride (Normal Saline Flush 0.9%) 10 ml IVP 0100,0900,1700 [facility] Last Admin: 05/15/19 09:14 Dose: 10 ml Trazodone HCl (Desyrel) 50 mg PO QPM PRN PRN Reason: Insomnia Last Admin: 05/14/19 23:43 Dose: 50 mg Warfarin Sodium (Coumadin) 2.5 mg PO [id number]@1800 [facility] Warfarin Sodium (Coumadin) 5 mg PO MoFr@1800 [facility] Metoprolol Tartrate 100 mg PO BID 06/12/14 Nitrofurantoin [Macrobid] 100 mg ORAL DAILY PRN 06/12/14 diltiaZEM CD [Cardizem Cd] 180 mg PO DAILY 06/12/14 Lisinopril 40 mg PO DAILY 06/18/17 Furosemide 40 mg PO DAILY 05/15/19 Warfarin Sodium [Jantoven] 2.5 mg PO SUTUWETHSA 05/15/19 Warfarin Sodium [Jantoven] 3.75 mg PO MOFR 05/15/19 Objective - Vital Signs/Intake & Output Reviewed Vital Signs: Yes Vital Signs: Vital Signs x48h Temp Pulse Resp BP BP Pulse Ox 05/15/19 11:21 36.4 C L 50 L 18 152/61 H 100 05/15/19 09:14 174/69 H 05/15/19 09:12 60 174/69 H 05/15/19 08:36 36.8 C 53 L 18 169/58 H 97 Intake & Output: Intake & Output 05/12/19 05/13/19 05/14/19 05/15/19 23:59 23:59 23:59 23:59 Intake Total 200 120 Output Total 2600 Balance 200 -2480 - Objective General Appearance: positive: No acute distress, Alert, Other (Sitting in bed, comfortable, no TV on. Eating breakfast.) Eyes Bilateral: positive: PERRL, EOMI Neck: positive: No JVD Respiratory: positive: Chest non-tender, Rales (minimal at bases). negative: Wheezes, Rhonchi Cardiovascular: positive: Regular rate & rhythm, Systolic murmur. negative: Gallop/S4, Friction rub (Holosystolic, loudest at apex) Abdomen: positive: Non-tender, No organomegaly, Nml bowel sounds, No distention. negative: Guarding, Rebound Skin: positive: Warm, Dry Extremities: positive: No pedal edema Neurologic/Psychiatric: positive: Oriented x3, CN's nml (2-12), Motor nml, Sensation nml Reflexes: Bicep (R): 1+, Bicep (L): 1+, Knee (R): 1+, Knee (L): 1+, Ankle (R): 0, Ankle (L): 0 Babinski Reflex: Right: Down, Left: Down - Lab Results Fish Bones: 05/15/19 08:44 05/15/19 08:44 Other Labs: Lab Results x24hrs 05/15/19 05/15/19 05/15/19 Range/Units 08:44 08:44 08:44 WBC 7.7 (4.8-10.8) x10^3/uL RBC 3.30 L (4.20-5.40) 10^6/uL Hgb 11.0 L (12.0-16.0) g/dL Hct 32.9 L (37.0-47.0) % MCV 99.7 H (81.0-99.0) fL MCH 33.3 H (27.0-31.0) pg MCHC 33.4 (32.0-36.0) g/dL RDW 12.7 (12.0-15.0) % Plt Count 221 (130-450) 10^3/uL MPV 9.7 (7.9-10.8) fL Neut # (Auto) 5.0 Lymph # (Auto) 1.5 [place] # (Auto) 1.0 Eos # (Auto) 0.0 Baso # (Auto) 0.1 Absolute Nucleated RBC 0.00 Total Counted Band Neuts % (Manual) (0 - 10) % Abnorm Lymph % (Manual) % Nucleated RBC % 0.0 Neutrophils # (Manual) (1.5-6.6) 10^3/uL Lymphocytes # (Manual) (1.5-3.5) 10^3/uL Monocytes # (Manual) (0.0-1.0) 10^3/uL Eosinophils # (Manual) (0-0.7) 10^3/uL Basophils # (Manual) (0-0.1) 10^3/uL Differential Comment WBC Morphology (NORMAL) Platelet Estimate (NORMAL) Platelet Morphology (NORMAL) RBC Morph Micro Appear (NORMAL) PT (9.9-12.6) secs INR (0.8-1.2) Sodium 131 L (135-145) mmol/L Potassium 3.6 (3.5-5.0) mmol/L Chloride 91 L (101-111) mmol/L Carbon Dioxide 26 (21-32) mmol/L Anion Gap 14.0 H (6-13) BUN 21 H (6-20) mg/dL Creatinine 1.4 H (0.4-1.0) mg/dL Estimated GFR (MDRD) 36 L (>89) Glucose 124 H (70-100) mg/dL Calcium 9.4 (8.5-10.3) mg/dL Total Bilirubin (0.2-1.0) mg/dL AST (10-42) IU/L ALT (10-60) IU/L Alkaline Phosphatase (42-121) IU/L Troponin I 0.04 (<0.49) ng/mL B-Natriuretic Peptide (5-100) pg/mL Total Protein (6.7-8.2) g/dL Albumin (3.2-5.5) g/dL Globulin (2.1-4.2) g/dL Albumin/Globulin Ratio (1.0-2.2) Lipase (22-51) U/L Ethyl Alcohol mg/dL 05/15/19 05/14/19 05/14/19 Range/Units 03:24 18:55 18:55 WBC (4.8-10.8) x10^3/uL RBC (4.20-5.40) 10^6/uL Hgb (12.0-16.0) g/dL Hct (37.0-47.0) % MCV (81.0-99.0) fL MCH (27.0-31.0) pg MCHC (32.0-36.0) g/dL RDW (12.0-15.0) % Plt Count (130-450) 10^3/uL MPV (7.9-10.8) fL Neut # (Auto) Lymph # (Auto) [place] # (Auto) Eos # (Auto) Baso # (Auto) Absolute Nucleated RBC Total Counted Band Neuts % (Manual) (0 - 10) % Abnorm Lymph % (Manual) % Nucleated RBC % Neutrophils # (Manual) (1.5-6.6) 10^3/uL Lymphocytes # (Manual) (1.5-3.5) 10^3/uL Monocytes # (Manual) (0.0-1.0) 10^3/uL Eosinophils # (Manual) (0-0.7) 10^3/uL Basophils # (Manual) (0-0.1) 10^3/uL Differential Comment WBC Morphology (NORMAL) Platelet Estimate (NORMAL) Platelet Morphology (NORMAL) RBC Morph Micro Appear (NORMAL) PT (9.9-12.6) secs INR (0.8-1.2) Sodium (135-145) mmol/L Potassium (3.5-5.0) mmol/L Chloride (101-111) mmol/L Carbon Dioxide (21-32) mmol/L Anion Gap (6-13) BUN (6-20) mg/dL Creatinine (0.4-1.0) mg/dL Estimated GFR (MDRD) (>89) Glucose (70-100) mg/dL Calcium (8.5-10.3) mg/dL Total Bilirubin (0.2-1.0) mg/dL AST (10-42) IU/L ALT (10-60) IU/L Alkaline Phosphatase (42-121) IU/L Troponin I 0.04 (<0.49) ng/mL B-Natriuretic Peptide 3644 H (5-100) pg/mL Total Protein (6.7-8.2) g/dL Albumin (3.2-5.5) g/dL Globulin (2.1-4.2) g/dL Albumin/Globulin Ratio (1.0-2.2) Lipase (22-51) U/L Ethyl Alcohol < 5.0 mg/dL 05/14/19 05/14/19 05/14/19 Range/Units 18:55 18:55 18:55 WBC (4.8-10.8) x10^3/uL RBC (4.20-5.40) 10^6/uL Hgb (12.0-16.0) g/dL Hct (37.0-47.0) % MCV (81.0-99.0) fL MCH (27.0-31.0) pg MCHC (32.0-36.0) g/dL RDW (12.0-15.0) % Plt Count (130-450) 10^3/uL MPV (7.9-10.8) fL Neut # (Auto) Lymph # (Auto) [place] # (Auto) Eos # (Auto) Baso # (Auto) Absolute Nucleated RBC Total Counted Band Neuts % (Manual) (0 - 10) % Abnorm Lymph % (Manual) % Nucleated RBC % Neutrophils # (Manual) (1.5-6.6) 10^3/uL Lymphocytes # (Manual) (1.5-3.5) 10^3/uL Monocytes # (Manual) (0.0-1.0) 10^3/uL Eosinophils # (Manual) (0-0.7) 10^3/uL Basophils # (Manual) (0-0.1) 10^3/uL Differential Comment WBC Morphology (NORMAL) Platelet Estimate (NORMAL) Platelet Morphology (NORMAL) RBC Morph Micro Appear (NORMAL) PT 33.3 H (9.9-12.6) secs INR 3.0 H (0.8-1.2) Sodium 128 L (135-145) mmol/L Potassium 4.5 (3.5-5.0) mmol/L Chloride 90 L (101-111) mmol/L Carbon Dioxide 26 (21-32) mmol/L Anion Gap 12.0 (6-13) BUN 22 H (6-20) mg/dL Creatinine 1.5 H (0.4-1.0) mg/dL Estimated GFR (MDRD) 34 L (>89) Glucose 117 H (70-100) mg/dL Calcium 9.7 (8.5-10.3) mg/dL Total Bilirubin 1.1 H (0.2-1.0) mg/dL AST 22 (10-42) IU/L ALT 12 (10-60) IU/L Alkaline Phosphatase 96 (42-121) IU/L Troponin I 0.04 (<0.49) ng/mL B-Natriuretic Peptide (5-100) pg/mL Total Protein 7.6 (6.7-8.2) g/dL Albumin 4.4 (3.2-5.5) g/dL Globulin 3.2 (2.1-4.2) g/dL Albumin/Globulin Ratio 1.4 (1.0-2.2) Lipase 43 (22-51) U/L Ethyl Alcohol mg/dL 05/14/19 Range/Units 18:55 WBC 8.0 (4.8-10.8) x10^3/uL RBC 3.48 L (4.20-5.40) 10^6/uL Hgb 11.6 L (12.0-16.0) g/dL Hct 34.7 L (37.0-47.0) % MCV 99.7 H (81.0-99.0) fL MCH 33.3 H (27.0-31.0) pg MCHC 33.4 (32.0-36.0) g/dL RDW 12.9 (12.0-15.0) % Plt Count 240 (130-450) 10^3/uL MPV 9.4 (7.9-10.8) fL Neut # (Auto) Not Reportable Lymph # (Auto) Not Reportable [place] # (Auto) Not Reportable Eos # (Auto) Not Reportable Baso # (Auto) Not Reportable Absolute Nucleated RBC Not Reportable Total Counted 100 Band Neuts % (Manual) 1 (0 - 10) % Abnorm Lymph % (Manual) 0 % Nucleated RBC % Not Reportable Neutrophils # (Manual) 5.4 (1.5-6.6) 10^3/uL Lymphocytes # (Manual) 2.1 (1.5-3.5) 10^3/uL Monocytes # (Manual) 0.6 (0.0-1.0) 10^3/uL Eosinophils # (Manual) 0.0 (0-0.7) 10^3/uL Basophils # (Manual) 0.0 (0-0.1) 10^3/uL Differential Comment MANUAL DIFFERENTIAL WBC Morphology NORMAL APPEARANCE (NORMAL) Platelet Estimate NORMAL (130-450,000) (NORMAL) Platelet Morphology NORMAL APPEARANCE (NORMAL) RBC Morph Micro Appear NORMAL APPEARANCE (NORMAL) PT (9.9-12.6) secs INR (0.8-1.2) Sodium (135-145) mmol/L Potassium (3.5-5.0) mmol/L Chloride (101-111) mmol/L Carbon Dioxide (21-32) mmol/L Anion Gap (6-13) BUN (6-20) mg/dL Creatinine (0.4-1.0) mg/dL Estimated GFR (MDRD) (>89) Glucose (70-100) mg/dL Calcium (8.5-10.3) mg/dL Total Bilirubin (0.2-1.0) mg/dL AST (10-42) IU/L ALT (10-60) IU/L Alkaline Phosphatase (42-121) IU/L Troponin I (<0.49) ng/mL B-Natriuretic Peptide (5-100) pg/mL Total Protein (6.7-8.2) g/dL Albumin (3.2-5.5) g/dL Globulin (2.1-4.2) g/dL Albumin/Globulin Ratio (1.0-2.2) Lipase (22-51) U/L Ethyl Alcohol mg/dL ABX Reporting Has patient been on IV antibiotics over the past 48 hours?: No Assessment/Plan - Problem List (1) Acute on chronic right-sided congestive heart failure Impression: Review of echocardiogram in 2017 showed moderate to severe mitral regurgitation with pulmonary hypertension. I suspect that is worsened. Patient given 80 mg IV lasix in the ED PLAN Will continue lasix at 20mg IV bid Daily weights. Selected Entries 05/14/19 05/14/19 05/15/19 21:11 21:53 05:59 Weight (kg) 66.678 kg 67 kg 66 kg Sodium and fluid restriction check BNP in am Continue metoprolol tartrate 100mg bid If patient in the hospital for > 2 days, will get 2D echo If not, it may be done outpatient. Qualifiers: Heart failure type: unspecified Qualified Code(s): I50.9 - Heart failure, unspecified (2) Neurologic complaint. Exam is negative. There are no tremors. No focal deficits. Cranial nerves are normal. There seems to be an element of anxiety. She is already voicing fears that she cannot go home even though her exam is normal, and her shortness of breath is better. I have offered her temporary respite care at a nursing home facility. She will let me know if she would like to go do that. (3) Chest pressure Conclusion/Plan: Nitro-paste on chest All troponins less than 0.04 2D echo as outpatient (4) Atrial fibrillation Conclusion/Plan: with slow ventricular rhythm. Has occasional 2 second pauses without symptoms On metoprolol and diltiazem. On coumadin with INR of 3 Qualifiers: Atrial fibrillation type: chronic Qualified Code(s): I48.2 - Chronic atrial fibrillation (5) Hypertension Conclusion/Plan: On diltiazem and metoprolol with BP 152/61 this am. Nitro-paste placed on chest Hydralazine ordered prn Qualifiers: Hypertension type: essential hypertension Qualified Code(s): I10 - Essenti al (primary) hypertension (6) History of breast cancer Conclusion/Plan: On anastrozole (7) Chronic kidney disease Conclusion/Plan: At baseline. Cr 1.5 on admit and is 1.4 this am. Check again in am in the face of diuresis. Qualifiers: Chronic kidney disease stage: stage 3 (moderate) Qualified Code(s): N18.3 - Chronic kidney disease, stage 3 (moderate)
[2019-05-15] MEDS ORDERED: WARFARIN 2.5 MG TABLET PO SCH (18:00)
[2019-05-15] MEDS: METOPROLOL TARTRATE 50 MG TABLET PO SCH (20:42)
[2019-05-16 05:10] LABS: BASOPHILS # (AUTO) 0.1 10^3/uL (0.0-0.1); BASOPHILS % (AUTO) 0.8 %; EOSINOPHILS # (AUTO) 0.1 10^3/uL (0.0-0.7); HGB - HEMOGLOBIN 11.2 g/dL (12.0-16.0); LYMPHOCYTES # (AUTO) 1.6 10^3/uL (1.5-3.5); MEAN CORPUSCULAR HEMOGLOBIN 33.9 pg (27.0-31.0); MEAN CORPUSCULAR HGB CONC 33.6 g/dL (32.0-36.0); MEAN CORPUSCULAR VOLUME 100.9 fL (81.0-99.0); MEAN PLATELET VOLUME 9.7 fL (7.9-10.8); MONOCYTES # (AUTO) 0.7 10^3/uL (0.0-1.0); MONOCYTES % (AUTO) 11.6 %; NEUTROPHILS # (AUTO) 3.8 10^3/uL (1.5-6.6); NEUTROPHILS % (AUTO) 61.3 %; PLT - PLATELET COUNT 205 10^3/uL (130-450); RED CELL DISTRIBUTION WIDTH 12.8 % (12.0-15.0); WHITE BLOOD COUNT 6.2 x10^3/uL (4.8-10.8)
[2019-05-16 05:25] LABS: INR 2.5 (0.8-1.2); PT - PROTHROMBIN TIME 28.2 secs (9.9-12.6)
[2019-05-16 05:28] LABS: CALCIUM 9.2 mg/dL (8.5-10.3); CREATININE 1.6 mg/dL (0.4-1.0)
[2019-05-16] MEDS: PANTOPRAZOLE 40 MG VIAL IVP SCH (06:24)
[2019-05-16] MEDS: SODIUM CHLORIDE FLUSH 0.9% 10 ML SYRINGE IVP PRN (06:24)
[2019-05-16] MEDS: FUROSEMIDE 20 MG/2 ML VIAL IVP SCH ×2 (06:24→13:56)
[2019-05-16] MEDS: ANASTROZOLE 1 MG TABLET PO SCH (08:16)
[2019-05-16] MEDS: LISINOPRIL 20 MG TABLET PO SCH (08:16)
[2019-05-16] MEDS: diltiaZEM CD 180 MG CAPSULE PO SCH (08:17)
[2019-05-16] MEDS: POLYETHYLENE GLYCOL 3350 17 GM PACKET PO SCH (08:18)
[2019-05-16] MEDS: METOPROLOL TARTRATE 50 MG TABLET PO SCH (08:18)
[2019-05-16] MEDS: SODIUM CHLORIDE FLUSH 0.9% 10 ML SYRINGE IVP SCH (08:18)
--- NOTE | 2019-05-16 08:58 | Discharge Plan ---
Discharge Plan Problem Reviewed?: Yes Disposition: Home, Self Care Condition: Good Prescriptions: Furosemide 40 mg PO BID #60 tablet Metoprolol Tartrate [Lopressor] 50 mg PO BID #60 tablet Diet: Regular Activity Restrictions: No Restrictions Shower Restrictions: No Driving Restrictions: No Health Concerns: You presented to the hospital with pain under your sternum that woke you up. You also had mild shortness of breath, chills, and nausea with this. We found you to have the same problem you had in 06/2017 with acute right sided heart failure. You have heart failure that is chronic from high blood pressure in your lungs called pulmonary hypertension. For some reason your blood pressure medicines and lasix you take at home did not work enough and caused your heart to not pump as well and this in turn caused acute congestive heart failure. Plan of Treatment: 1. We gave you lasix through your IV into your veins and you had a brisk response with good urine output. This made your congestive heart failure better. But you will need to double up on you lasix for the next week. After a week you can go back to one pill a day. 2. During your stay, your pulse was too low (down to the 40 and 50's) from the metoprolol 100 mg tab twice a day so we have reduced it to half that dose of 50 mg twice a day. Please see Dr. Mortensen in the next 2 weeks to have him followup on your pulse, especially since you have atrial fibrillation. Take your pulse ONCE a day only. Record that on a piece of paper you can hand to Dr. Mortensen. 3. We do not have echocardiogram availabe while you were here. Please have Dr. Mortensen order you one so that your current heart muscle function can be compared to the function from 2017. 4. Have your BMP and BNP, blood tests for electrolytes and heart function, done with your next protime. I will ask Dr. Mortensen's office to order those. Care Goals: To get you back to your baseline endurance and heart rate. Assessment: Patient instructions reviewed and understood. No Smoking: If you smoke, Please STOP! Call for help. Follow-up with: Maximiliano Mortensen MD [Primary Care Provider] -
[2019-05-16 13:34] VITALS: BP 130/49
--- NOTE | 2019-05-16 14:54 | DISCHARGE SUMMARY ---
"Discharge Summary Admit Date: 05/14/19 Discharge Date: 05/16/19 Discharging Provider: Yoana Hughes MD Primary Care Provider: Maximiliano Mortensen MD Code Status: Attempt Resuscitation Condition at Discharge: Good Discharge Disposition: 01 Home, Self Care - DIAGNOSES Discharge Diagnoses with Status of Each Condition: 1. Acute on chronic right-sided heart failure, resolved 2. Severe pulmonary hypertension, chronic 3. Neurologic complaint, resolved 4. Chest pain secondary to heart failure, resolved 5. Atrial fibrillation, chronic 6. Hypertension, chornic 7. History of breast cancer 8. chronic kidney disease stage IV 9. Noncompliance with medication regime 10. Pleural effusions - HPI History of Present Illness: Patient is a 79 y/o female who presented to the ED with non-radiating sub- sternal chest pressure which started on 05/10/19 while she was sleeping. She reports some dyspnea and a generalized sense of not feeling well. She denies abdominal pain. She was nauseous and had some chills. She has +1 lower extremity edema around her ankles. The last occurence of similar symptoms was 06/18/17. At the time she was admitted for 6 days. During that admission she had her most recent echocardiogram. In the ED she was found to have a BNP of 3644. At bedside she is on room air, speaking in complete sentences. She is being admitted for further work up. History - Past Medical History Cardiovascular: reports: Hypertension, High cholesterol, Atrial fibrillation, Arrhythmia Respiratory: reports: Pneumonia, Shortness of breath Neuro: reports: TIA Endocrine/Autoimmune: reports: None GI: reports: None : reports: Chronic bladder infection HEENT: reports: Chronic vision loss Psych: reports: Anxiety Musculoskeletal: reports: None Derm: reports: None MRSA Hx?: No Other Past Medical History: right breast cancer treated with radiation She also endorses a noncompliance history. She is on anastrozole for breast cancer but ran out of the medication. She has not been followed up by her oncologist since January of this year and she cannot say exactly why she has not kept her appointments. In any case she wonders if she should still be taking the anastrozole even though her medication is run out and her oncologist has not refilled it. - CONSULTS | PROCEDURES Procedures: 1. Chest x-ray with mild cardiomegaly. Moderate to large left pleural effusions and a small right pleural effusion. - HOSPITAL COURSE Hospital Course: The patient was diuresed with IV Lasix and had a good result and was -2480 cc by the next day. She has chronic kidney disease stage IV and had mild exacerbation of that. Creatinine went from 1.4-1.6 with diuresis. But BNP improved at 3644 and went down to 2115. She remains mildly hyponatremic at 132. I feel that she has chronic pulmonary hypertension as seen on previous echo in 2017. There is been no follow-up from that echocardiogram since that time. Echocardiogram is not available in the time that this patient is in the hospital and she will need an outpatient follow-up. I would ask her primary care provider to do an echocardiogram.She is temporarily discharged on 40 mg of Lasix twice a day. She is usually on 40 mg once a day. I have asked her to do this only for [address] Bonilla in follow-up and to get a previsit INR, BMP, and BNP. Second problem is that of pleural effusions in a lady who has right-sided heart failure as well as a history of breast cancer. With her last visit in January 2019 she was to be on anastrozole. But had no evidence of recurrent disease. She will need an outpatient work-up of the pleural effusions with a diagnostic thoracentesis. I would also asked her to follow-up with her oncologist. We did give her anastrozole while she was here and have encouraged her to make sure she sees her oncologist to get that refilled. She did have an episode where she described the room as pulsating. Much like she would take a breath and then exhale, the room seemed to expand and then shrink in front of her eyes. The episode lasted about 5 minutes. Was not accompanied by any focal deficits, dizziness, chest pain, lightheadedness, focal deficits or tremors. It resolved on its own. Her chronic atrial fibrillation with controlled during her stay. She is occasionally bradycardic and has 2-second pauses on metoprolol and Cardizem. As such I decreased her metoprolol from 100 mg twice daily to 50 mg twice daily. Whenever manifesting symptoms on admission was that of chest pressure and chest pain. Serial troponins were negative. She did not have any further chest pain while she was in the hospital. At discharge temperature was 36.7 pulse 50 blood pressure 130/59 respirations 20 and she is 100% on room air. She is a dull diminished breath sound at the right lung base, no crackles rhonchi wheezing. She has no increased respiratory effort. She is in fact quite cheerful today, and very proud of herself that she walked 20 minutes off and on yesterday without stopping. She is this very slow irregular rate and rhythm. She says that she prefers her heart rate to be in the 30s 40s. I asked her to please check her pulse on a daily basis and report to Dr. Mortensen if it drops below 60 and a regular basis. I would like her pulse, I explained to her, in the 60s. Abdomen was benign, no masses, no fluid wave. Extremities had no edema. Greater than 30 minutes was spent at discharge. - ALLERGIES Allergies/Adverse Reactions: Allergies Allergy/AdvReac Type Severity Reaction Status Date / Time Sulfa (Sulfonamide Allergy Rash Verified 06/18/17 10:39 Antibiotics) - MEDICATIONS Home Medications: Ambulatory Orders Medication Instructions Recorded Confirmed Nitrofurantoin [Macrobid] 100 mg ORAL DAILY PRN 06/12/14 05/15/19 diltiaZEM CD [Cardizem Cd] 180 mg PO DAILY 06/12/14 05/15/19 Lisinopril 40 mg PO DAILY 06/18/17 05/15/19 Anastrozole 1 mg PO DAILY 05/15/19 05/15/19 Warfarin Sodium [Jantoven] 2.5 mg PO SUTUWETHSA 05/15/19 05/15/19 Warfarin Sodium [Jantoven] 3.75 mg PO MOFR 05/15/19 05/15/19 Anastrozole 1 mg PO DAILY tablet 05/16/19 Furosemide 40 mg PO BID #60 tablet 05/16/19 Metoprolol Tartrate [Lopressor] 50 mg PO BID #60 tablet 05/16/19 - LABS Result Diagrams: 05/16/19 04:45 05/16/19 04:45"
[2019-05-18] MEDS ORDERED: WARFARIN 2.5 MG TABLET PO SCH (18:00)
== END 2019-05-16 15:30 | disposition home or self-care (01) | DRG 292 ==
LOC: ED 18:42 → MS2 21:06
PROVIDERS: ADMIT Internal Medicine; ATTEND Specialist
DX: R07.89 Other chest pain (principal); I11.0 Hypertensive heart disease with heart failure; I50.9 Heart failure, unspecified; I13.0 Hypertensive heart and chronic kidney disease with heart failure and stage 1 through stage 4 chronic kidney disease, or unspecified chronic kidney disease; N18.4 Chronic kidney disease, stage 4 (severe); E87.1 Hypo-osmolality and hyponatremia; I50.813 Acute on chronic right heart failure; I27.20 Pulmonary hypertension, unspecified; R29.818 Other symptoms and signs involving the nervous system; I48.2 Chronic atrial fibrillation; R00.1 Bradycardia, unspecified; T44.7X5A Adverse effect of beta-adrenoreceptor antagonists, initial encounter; C50.919 Malignant neoplasm of unspecified site of unspecified female breast; T45.1X6A Underdosing of antineoplastic and immunosuppressive drugs, initial encounter; Y92.009 Unspecified place in unspecified non-institutional (private) residence as the place of occurrence of the external cause; I34.0 Nonrheumatic mitral (valve) insufficiency; F41.9 Anxiety disorder, unspecified; Z91.128 Patient's intentional underdosing of medication regimen for other reason; Z87.01 Personal history of pneumonia (recurrent); Z86.73 Personal history of transient ischemic attack (TIA), and cerebral infarction without residual deficits; Z79.01 Long term (current) use of anticoagulants; Z79.899 Other long term (current) drug therapy; Z92.3 Personal history of irradiation; Z87.891 Personal history of nicotine dependence; Z87.440 Personal history of urinary (tract) infections
CPT/HCPCS: 36415; 71046; 80048; 80053; 83690; 83880; 84484; 85025; 85610; 93005; 96374; 99284; 99285; A9270; 80320

== ENCOUNTER 2019-06-01 08:36 | Outpatient (CLI) | payer MEDICARE, OTHER | END 2019-06-01 08:37 | disposition home or self-care (01) | LOC: LAB.S 08:36 | PROVIDERS: ATTEND Internal Medicine | DX: I48.91 Unspecified atrial fibrillation (principal); Z79.01 Long term (current) use of anticoagulants | CPT/HCPCS: 85610 ==

== ENCOUNTER 2019-06-26 10:02 | Outpatient (CLI) | payer MEDICARE, OTHER | END 2019-06-26 10:03 | disposition home or self-care (01) | LOC: DI 10:02 | PROVIDERS: ATTEND Internal Medicine | DX: I50.9 Heart failure, unspecified (principal); I08.3 Combined rheumatic disorders of mitral, aortic and tricuspid valves | CPT/HCPCS: 93306 ==

== ENCOUNTER 2019-07-04 08:01 | Outpatient (CLI) | payer MEDICARE, OTHER ==
[2019-07-04 10:10] LABS: CALCIUM 9.5 mg/dL (8.5-10.3); CREATININE 1.6 mg/dL (0.4-1.0)
== END 2019-07-04 08:02 | disposition home or self-care (01) ==
LOC: LAB.S 08:01
PROVIDERS: ATTEND Internal Medicine
DX: I48.91 Unspecified atrial fibrillation (principal); Z79.01 Long term (current) use of anticoagulants; I12.9 Hypertensive chronic kidney disease with stage 1 through stage 4 chronic kidney disease, or unspecified chronic kidney disease; N18.3 Chronic kidney disease, stage 3 (moderate); R73.01 Impaired fasting glucose; C50.919 Malignant neoplasm of unspecified site of unspecified female breast; E87.1 Hypo-osmolality and hyponatremia
CPT/HCPCS: 80048; 83880; 85610

== ENCOUNTER 2019-07-19 08:21 | Outpatient (CLI) | payer MEDICARE, OTHER | END 2019-07-19 08:22 | disposition home or self-care (01) | LOC: LAB.S 08:21 | PROVIDERS: ATTEND Internal Medicine | DX: I48.91 Unspecified atrial fibrillation (principal); Z79.01 Long term (current) use of anticoagulants | CPT/HCPCS: 85610 ==

== ENCOUNTER 2019-08-30 08:33 | Outpatient (CLI) | payer MEDICARE, OTHER | END 2019-08-30 08:34 | disposition home or self-care (01) | LOC: LAB.S 08:33 | PROVIDERS: ATTEND Internal Medicine | DX: I48.91 Unspecified atrial fibrillation (principal); Z79.01 Long term (current) use of anticoagulants; I35.0 Nonrheumatic aortic (valve) stenosis; N18.3 Chronic kidney disease, stage 3 (moderate); I50.9 Heart failure, unspecified; E87.1 Hypo-osmolality and hyponatremia; R73.01 Impaired fasting glucose; C50.919 Malignant neoplasm of unspecified site of unspecified female breast; I13.0 Hypertensive heart and chronic kidney disease with heart failure and stage 1 through stage 4 chronic kidney disease, or unspecified chronic kidney disease | CPT/HCPCS: 36415; 83880; 85610 ==

== ENCOUNTER 2019-09-25 11:33 | Outpatient (CLI) | payer MEDICARE, OTHER ==
[2019-09-25 17:24] LABS: BASOPHILS # (AUTO) 0.1 10^3/uL (0.0-0.1); BASOPHILS % (AUTO) 1.1 %; EOSINOPHILS # (AUTO) 0.8 10^3/uL (0.0-0.7); EOSINOPHILS % (AUTO) 11.3 %; HGB - HEMOGLOBIN 11.5 g/dL (12.0-16.0); LYMPHOCYTES # (AUTO) 1.9 10^3/uL (1.5-3.5); MEAN CORPUSCULAR HGB CONC 32.1 g/dL (32.0-36.0); MEAN CORPUSCULAR VOLUME 102.9 fL (81.0-99.0); MONOCYTES # (AUTO) 0.8 10^3/uL (0.0-1.0); MONOCYTES % (AUTO) 11.7 %; NEUTROPHILS # (AUTO) 3.6 10^3/uL (1.5-6.6); NEUTROPHILS % (AUTO) 49.6 %; PLT - PLATELET COUNT 209 10^3/uL (130-450); RED BLOOD COUNT 3.48 10^6/uL (4.20-5.40); RED CELL DISTRIBUTION WIDTH 13.4 % (12.0-15.0); WHITE BLOOD COUNT 7.2 x10^3/uL (4.8-10.8)
[2019-09-25 17:29] LABS: INR 2.9 (0.8-1.2); PT - PROTHROMBIN TIME 31.5 secs (9.9-12.6)
[2019-09-25 17:54] LABS: CALCIUM 9.5 mg/dL (8.5-10.3); CREATININE 1.6 mg/dL (0.4-1.0)
== END 2019-09-25 23:59 | disposition home or self-care (01) ==
LOC: LAB.S 11:33
PROVIDERS: ATTEND Internal Medicine Cardiovascular Disease
DX: Z00.00 Encounter for general adult medical examination without abnormal findings (principal); I35.0 Nonrheumatic aortic (valve) stenosis; M25.572 Pain in left ankle and joints of left foot; I48.91 Unspecified atrial fibrillation; N63.0 Unspecified lump in unspecified breast; I13.0 Hypertensive heart and chronic kidney disease with heart failure and stage 1 through stage 4 chronic kidney disease, or unspecified chronic kidney disease; N18.3 Chronic kidney disease, stage 3 (moderate); I50.9 Heart failure, unspecified; R60.9 Edema, unspecified; M25.522 Pain in left elbow; K21.9 Gastro-esophageal reflux disease without esophagitis; Z86.79 Personal history of other diseases of the circulatory system; E87.1 Hypo-osmolality and hyponatremia; R73.01 Impaired fasting glucose; C50.919 Malignant neoplasm of unspecified site of unspecified female breast; C50.411 Malignant neoplasm of upper-outer quadrant of right female breast; M25.562 Pain in left knee; J18.9 Pneumonia, unspecified organism; N39.0 Urinary tract infection, site not specified
CPT/HCPCS: 36415; 80048; 83880; 85025; 85610

== ENCOUNTER 2019-10-08 09:11 | Outpatient (CLI) | payer MEDICARE, OTHER | END 2019-10-08 09:12 | disposition home or self-care (01) | LOC: LAB.S 09:11 | PROVIDERS: ATTEND Internal Medicine | DX: I48.91 Unspecified atrial fibrillation (principal); Z79.01 Long term (current) use of anticoagulants | CPT/HCPCS: 85610 ==

== ENCOUNTER 2019-11-14 13:28 | Outpatient (CLI) | payer MEDICARE, OTHER | END 2019-11-14 13:29 | disposition home or self-care (01) | LOC: LAB.S 13:28 | PROVIDERS: ATTEND Internal Medicine | DX: Z79.01 Long term (current) use of anticoagulants (principal); I48.91 Unspecified atrial fibrillation | CPT/HCPCS: 85610 ==